=== PATIENT | female | born 1955 | race Caucasian/White ===

== ENCOUNTER 2023-10-25 09:58 | Outpatient (OUT) | payer MEDICARE, SELFPAY ==
--- NOTE | 2023-10-25 10:06 | US_ITS ---
[address] [address] Patient Name: DANYEL PHAM MRN: [facility]:[id number] date: 1955 Sex: F Assigned Patient Location: Current Patient Location: US Accession/Order Number: [id number] Exam Date: 10/25/2023 10:07 Report Date: 10/25/2023 11:48 At the request of: TROY ORTIZ Procedure: US carotid duplex BI EXAMINATION: US carotid duplex BI HISTORY: Bilateral Carotid Bruit R09.89 COMPARISON: No relevant comparison available. TECHNIQUE: Duplex Doppler ultrasound analysis of carotid and vertebral arteries. . Bilateral carotid arterial duplex examination was performed using B-mode, color flow and spectral analysis. Carotid stenosis is reported according to validated velocity parameters, similar to NASCET criteria. FINDINGS: RIGHT CAROTID ARTERY minimal plaque Subclavian: 106.24 cm/s / 0 cm/s CCA: Prox: 64.85 cm/s / 17.54 cm/s Mid: 71.30 cm/s / 14.17 cm/s Distal: 55.92 cm/s / 16.37 cm/s BULB: 46.03 cm/s / 17.47 cm/s ICA: Prox: 50.43 cm/s / 24.06 cm/s Mid: 77.89 cm/s / 29.55 cm/s Distal: 94.35 cm/s / 30.93 cm/s ECA: 49.05 cm/s / 6.34 cm/s VERTEBRAL: 47.74 cm/s / 14.10 cm/s, antegrade ICA/CCA ratio: 1.7 LEFT CAROTID ARTERY no plaque Subclavian: 118 cm/s / 10.1 cm/s CCA: Prox: 89.82 cm/s / 23.59 cm/s Mid: 68.82 cm/s / 17.12 cm/s Distal: 61.08 cm/s / 18.24 cm/s BULB: 62.18 cm/s / 23.73 cm/s ICA: Prox: 90.75 cm/s / 36.91 cm/s Mid: 94.04 cm/s / 35.82 cm/s Distal: 56.69 cm/s / 23.73 cm/s ECA: 43.49 cm/s / 7.25 cm/s VERTEBRAL: 46.79 cm/s / 19.33 cm/s, antegrade ICA/CCA ratio: 1.5 US/US carotid duplex BI IMPRESSION: 0-49% flow stenosis bilateral internal carotid arteries Spectral Doppler US Thresholds (Reference: Delfino EG, et al. Radiology 2000; 214:247-252) Stenosis (%) PSV (cm/sec) VICA/VCCA 0-49 <150 <2.5 50-69 150-225 2.5-4.0 >70 >225 >4.0 Electronically authenticated by: DERIC IBARRA Date: 10/25/2023 11:48
--- NOTE | 2023-10-25 10:07 | US_ITS ---
[address] [address] Patient Name: DANYEL PHAM MRN: [id number] date: 1955 Sex: F Assigned Patient Location: US Current Patient Location: US Accession/Order Number: [id number] Exam Date: 10/25/2023 10:07 Report Date: 10/25/2023 11:15 At the request of: TROY ORTIZ Procedure: US abdominal aortic aneurysm EXAMINATION: US abdominal aortic aneurysm HISTORY: Screening For Abdominal Aortic Aneurysm COMPARISON: No relevant comparison available. TECHNIQUE: Ultrasound examination of the retroperitoneal area was performed, with a focused evaluation of the abdominal aorta. FINDINGS: Proximal aorta: 1.8 x 2.0 cm Mid aorta: 1.2 x 1.4 cm Distal aorta: 1.2 x 1.7 cm Right common iliac artery: 1.0 x 1.2 cm Left common iliac artery: 1.0 x 1.0 cm Mild bilateral atherosclerotic disease US/US abdominal aortic aneurysm IMPRESSION: No aortic aneurysm Electronically authenticated by: DERIC IBARRA Date: 10/25/2023 11:15
== END 2023-10-25 09:59 | disposition home or self-care (01) ==
LOC: US 09:58
PROVIDERS: Family Provider Family Medicine; PCP Family Medicine; Visit Provider Student in an Organized Health Care Education/Training Program
DX: R09.89 Other specified symptoms and signs involving the circulatory and respiratory systems (principal); Z13.6 Encounter for screening for cardiovascular disorders; Z87.891 Personal history of nicotine dependence
CPT/HCPCS: 76775; 93880

== ENCOUNTER 2024-03-02 12:49 | Outpatient (OUT) | payer MEDICARE, SELFPAY ==
--- OUTSIDE RECORDS SUMMARY | 2024-03-02 12:54 | XMS_ITS | CCD ---
Author Organization [facility] Care Team Providers Care Embedder Name Role Phone Celena HARDY, Nina Primary Care Provider Angeli BACKEND JAVA DEVELOPER, Lisbet Unavailable Angeli BACKEND JAVA DEVELOPER, Lisbet Unavailable Nina Wright MD Primary Care Provider [phone] NINA WRIGHT Referring Unavailable NINA WRIGHT Primary Care Unavailable FRANCISCO SEYMOUR Attending Unavailable NINA WRIGHT Referring Unavailable NINA WRIGHT Primary Care Unavailable Anglei BACKEND JAVA DEVELOPER, Lisbet Unavailable NISHI BASSETT Attending Unavailable CHIDIPBASILIO, LISBET Attending Unavailable CHIDIPFER, LISBET Attending Unavailable ANGELI, LISBET Attending Unavailable NISHI BASSETT Referring Unavailable LISBET SUH Attending Unavailable ANGELI, LISBET Attending Unavailable LISBET SUH Referring Unavailable ELIZABETH LOMELI Attending Unavailab ELIZABETH Slade Referring Unavailab LISBET Decker Attending Unavailable CHIDIPFER, LISBET Referring Unavailable CHIDIPBASILIO, LISBET Attending Unavailable CHIDIPBASILIO, LISBET Attending Unavailable KAY PAREDES Attending Unavailable NISHI BASSETT Referring Unavailable Allergies Allergy Classification Reported Allergen(s) Allergy Type Date of Onset Reaction(s) Facility (11 sources) atorvastatin Drug Allergy 4 GI intolerance [facility] Medications Current Medications Medication Drug Class(es) Dates Sig (Normalized) Sig (Original) aspirin 81 mg delayed release oral tablet (18 sources) Platelet Aggregation Inhibitor, Nonsteroidal Anti-inflammatory Drug take 1 tablet by mouth in the morning aspirin 81 MG EC tablet Take 81 mg by mouth in the morning. Active bisacodyl 5 mg delayed release oral tablet (2 sources) Stimulant Laxative Start: 02-14-2024 End: 02-14-2024 take 1 tablet by mouth once bisacodyl (Dulcolax) 5 MG EC tablet Indications: History of colonoscopy with polypectomy Take 1 tablet (5 mg) by mouth 1 time for 1 dose Do not crush, chew, or split. Take as detailed on clinic hand out for colonoscopy prep 4 tablet 02/14/2024 02/14/2024 Active calcium carbonate 1500 mg oral tablet (15 sources) take 1 tablet by mouth in the morning calcium carbonate (Calcium 600) 600 MG tablet Take 600 mg by mouth in the morning. Active cetirizine hydrochloride 10 mg oral tablet (11 sources) Histamine-1 Receptor Antagonist cetirizine (ZyrTEC) 10 MG tablet Take by mouth Active cholecalciferol 0.025 mg oral capsule (17 sources) Vitamin D take 2 capsules by mouth in the morning cholecalciferol (Vitamin D-3) 25 MCG (1000 UT) capsule Take 2 capsules by mouth in the morning. Active take 2 capsules by m outh in the morning cholecalciferol, vitamin D3, 25 mcg (1,0 00 unit) capsule Take 2 capsules (2,000 Units total) by mouth in the morning. 0 Active docusate sodium 100 mg oral capsule (5 sources) Start: 02-03-2024 take 1 capsule by mouth once daily docusate sodium (Colace) 100 MG capsule Indications: Slow transit constipation Take 1 capsule (100 mg) by mouth Daily 30 capsule 02/03/2024 Active ergocalciferol, vitamin D2, (VITAMIN D2 ORAL) (3 sources) ergocalciferol, vitamin D2, (VITAMIN D2 ORAL) Take by mouth. 0 Active fluticasone propionate 0.05 mg/actuat metered dose nasal spray (11 sources) Corticosteroid Start: 01-11-2024 take 1 spray(s) nasal route once daily fluticasone (Flonase Allergy Relief) 50 MCG/ACT nasal spray Indications: Seasonal allergic rhinitis, unspecified trigger Administer 1 spray into each nostril Daily Shake gently. Before first use, prime pump. After use, clean tip and replace cap. 48 g 01/11/2024 Active 3 ml liraglutide 6 mg/ml pen injector (2 sources) GLP-1 Receptor Agonist inject 0.6 mg by subcutaneous injection in the morning SAXENDA 3 mg/0.5 mL (18 mg/3 mL) pen injector Inject 0.6 mg under the skin in the morning. 0 Active magnesium citrate (3 sources) MAGNESIUM CITRATE ORAL Take by mouth. 0 Active meclizine hydrochloride 12.5 mg oral tablet (5 sources) Antiemetic Start: 01-24-2024 End: 02-03-2024 take 1 tablet by mouth three times daily as needed for dizziness meclizine (Antivert) 12.5 MG tablet Indications: Vertigo Take 1 tablet (12.5 mg) by mouth 3 (three) times a day as needed for dizziness for up to 5 days 15 tablet 01/24/2024 02/03/2024 Discontinued (Therapy completed) montelukast 10 mg oral tablet (18 sources) Leukotriene Receptor Antagonist Start: 11-11-2023 End: 05-29-2024 take 1 tablet by mouth once daily montelukast (Singulair) 10 MG tablet Indications: Seasonal allergic rhinitis, unspecified trigger Take 1 tablet (10 mg) by mouth Daily 100 tablet 1 11/11/2023 05/29/2024 Active Start: 01-12-2021 End: 2023 take 1 tablet by mouth in the morning montelukast (SINGULAIR) 10 mg tablet Take 1 tablet (10 mg total) by mouth in the morning. 0 01/12/2021 Active Multiple Vitamin (multivitamin) tablet (15 sources) take 1 tablet by babie th in the morning Multiple Vitamin (multivitamin) tablet Take 1 tablet by mouth in the morning. Active take 1 tablet by mouth in the mo rning Multiple Vitamin (multivitamin) tablet Take 1 tablet by mouth in the morning. 0 Active mv-min/vit C/elderber/herb 124 (AIRBORNE ELDERBERRY ORAL) (3 sources) mv-min/vit C/elderber/herb 124 (AIRBORNE ELDERBERRY ORAL) Take by mouth. 0 Active polyethylene glycol 3350 24033 mg powder for oral solution (2 sources) Osmotic Laxative Start: 02-14-20 End: 02-14-20 take 17 g by mouth once polyethylene glycol, PEG, 3350 (Glycolax) 17 GM/SCOOP powder Indications: Colonoscopy Take 238 g by mouth 1 (one) time for 1 dose Take as detailed from clinic hand out for colonoscopy prep 238 g 02/14/2024 02/14/2024 Active saccharomyces boulardii 250 mg oral capsule (5 sources) take 1 capsule by mouth in the morning saccharomyces boulardii (Florastor) 250 MG capsule Take 250 mg by mouth in the morning and 250 mg before bedtime. Active Tirzepatide-Weight Management (Zepbound) 2.5 MG/0.5ML solution auto-injector (5 sources) Start: 05-10-19 End: 06-09-19 Tirzepatide-Weight Management (Zepbound) 2.5 MG/0.5ML solution auto-injector Indications: Class 1 obesity due to excess calories with serious comorbidity and body mass index (BMI) of 30.0 to 30.9 in adult Inject 2.5 mg under the skin 1 (one) time per week 2 mL 0 05/10/2023 06/09/2023 Active Start: 04-21-2023 End: 05-10-2023 Tirzepatide-Weight Managemen t (Zepbound) 2.5 MG/0.5ML solution auto-injector Indications: Class 1 obesity due to excess calories with serious comorbidity and body mass index (BMI) of 30.0 to 30.9 in adult Inject 2.5 mg under the skin 1 (one) time per week 2 mL 0 04/21/2023 05/10/2023 Discontinued (Reorder) UNABLE TO FIND (3 sources) UNABLE TO FIND Z ebound injection for weight loss one time weekly 0 Active UNABLE TO FIND T kellie by mouth daily. Med Name: Biotin, Gas Relief, and Zinc OTC 0 Active zinc gluconate 50 mg oral capsule (15 sources) take 1 capsule by mo ut in the morning Zinc Gluconate 50 MG capsule Take 1 capsule by mouth in the morning. Active Completed/Discontinued Medications Medication Drug Class(es) Dates Sig (Normalized) Sig (Original) Semaglutide-Weight Management (Wegovy) 0.25 MG/0.5ML solution auto-injector (3 sources) Start: 12-24-2023 End: 01-24-2024 Semaglutide-Weight Management (Wegovy) 0.25 MG/0.5ML solution auto-injector Indications: Class 1 obesity due to excess calories without serious comorbidity with body mass index (BMI) of 32.0 to 32.9 in adult Inject 0.25 mg under the skin 1 (one) time per week 6 mL 12/24/2023 01/24/2024 Discontinued Start: 12-24-2023 Semaglutide-We ight Management (Wegovy) 0.25 MG/0.5ML solution auto-injector Indications: Class 1 obesity due to excess calories without serious comorbidity with body mass index (BMI) of 32.0 to 32.9 in adult Inject 0.25 mg under the skin 1 (one) time per week 6 mL 12/24/2023 Active 100 ml zoledronic acid 0.05 mg/ml injection (1 source) Bisphosphonate Start: 05-31-2023 End: 05-31-2023 zoledronic acid (RECLAST) IVPB 5 mg/100 mL in mannitol 5% and water (0.05 mg/mL premix) Problems Active Problems Problem Classification Problem Date Documented Da te Episodic/Chronic Acquired foot deformities (15 sources) Hallux valgus; Translations: [Hallux valgus (acquired), unspecified foot] Onset: 07-26-2018 12-07-2022 Chronic Adjustment disorders (20 sources) Stress and adjustment reaction; Translations: [Adjustment disorder with other symptoms] Onset: 02-05-2020 08-19-2022 Chronic Anxiety disorders (15 sources) Anxiety; Translations: [Other specified anxiety disorders] Onset: 08-19-2022 08-19-2022 Chronic Conditions associated with dizziness or vertigo (2 sources) Vertigo; Translations: [Dizziness and giddiness] 01-24-2024 Episodic Disorders of lipid metabolism (15 sources) Mixed hyperlipidemia; Translations: [Mixed hyperlipidemia] Onset: 08-18-2022 08-18-2022 Chronic Mood disorders (15 sources) Dysthymia; Translations: [Dysthymic disorder] Onset: 08-18-2022 08-18-2022 Chronic Nutritional deficiencies (15 sources) Vitamin D deficiency; Translations: [Vitamin D deficiency, unspecified] Onset: 10-09-2019 12-07-2022 Chronic Occlusion or stenosis of precerebral arteries (6 sources) Bilateral stenosis of carotid arteries; Translations: [Occlusion and stenosis of bilateral carotid arteries] Onset: 11-04-2023 02-03-2024 Chronic Osteoporosis (20 sources) Senile osteoporosis; Translations: [Age-related osteoporosis without current pathological fracture] Onset: 10-02-2019 05-13-2023 Chronic Other and unspecified benign neoplasm (4 sources) History of polyp of colon; Translations: [History of colon polyps] 02-03-2024 Episodic Other circulatory disease (1 source) Other specified symptoms and signs involving the circulatory and respiratory systems; Translations: [Other specified symptoms and signs involving the circulatory and respiratory systems] Onset: 10-07-2023 Episodic Other gastrointestinal disorders (2 sources) Slow transit constipation; Translations: [Slow transit constipation] 02-03-2024 Episodic Other lower respiratory disease (4 sources) Calcified granuloma of lung; Translations: [Pulmonary fibrosis, unspecified] Onset: 08-19-2022 08-19-2022 Chronic Other nervous system disorders (15 sources) Chronic pain; Translations: [Other chronic pain] Onset: 05-16-2019 12-07-2022 Chronic Other nutritional; endocrine; and metabolic disorders (17 sources) Obesity; Translations: [Obesity, unspecified] Onset: 08-19-2022 08-19-2022 Chronic Other nutritional; endocrine; and metabolic disorders (1 source) Obesity caused by energy imbalance; Translations: [Other obesity due to excess calories] 05-10-2023 Chronic Other upper respiratory disease (15 sources) Seasonal allergic rhinitis; Translations: [Other seasonal allergic rhinitis] Onset: 08-18-2022 08-18-2022 Chronic Other upper respiratory disease (2 sources) Nasal congestion; Translations: [Nasal congestion] 01-24-2024 Episodic Otitis media and related conditions (2 sources) Otitis media of left ear; Translations: [Unspecified nonsuppurative otitis media, left ear] 01-24-2024 Episodic Residual codes; unclassified (15 sources) Obstructive sleep apnea syndrome; Translations: [Obstructive sleep apnea (adult) (pediatric)] Onset: 08-18-2022 08-18-2022 Chronic Residual codes; unclassified (2 sources) History of colonoscopy; Translations: [Other specified postprocedural states] 02-14-2024 Episodic Screening and history of mental health and substance abuse codes (1 source) Personal history of nicotine dependence; Translations: [Personal history of nicotine dependence] Onset: 10-07-2023 Episodic Unclassified (1 source) Outpatient Infusion Onset: 05-31-2023 Unclassified (1 source) Varicose Veins Onset: 10-07-2023 Past or Other Problems Problem Classification Problem Date Documented Da te Episodic/Chronic Mood disorders (15 sources) Mood disorders Onset: 03-12-2023 03-12-2023 Other and unspecified benign neoplasm (18 sources) Adenomatous polyp of colon ; Translations: [Benign neoplasm of sigmoid colon] Onset: 03-27-2021 12-07-2022 Episodic Other circulatory disease (11 sources) Carotid bruit; Translations: [Other specified symptoms and signs involving the circulatory and respiratory systems] Onset: 10-07-2023 10-22-2023 Episodic Other fractures (15 sources) Compression fracture of thoracic vertebra, nontraumatic; Translations: [Collapsed vertebra, not elsewhere classified, thoracic region, initial encounter for fracture] Onset: 08-19-2022 08-19-2022 Episodic Other lower respiratory disease (11 sources) Calcified granuloma of lung; Translations: [Other disorders of lung] Onset: 08-19-2022 08-19-2022 Episodic Other screening for suspected conditions (not mental disorders or infectious disease) (20 sources) Mammography abnormal; Translations: [Other abnormal and inconclusive findings on diagnostic imaging of breast] Onset: 04-30-2017 12-07-2022 Episodic Residual codes; unclassified (15 sources) Insomnia; Translations: [Insomnia, unspecified] Onset: 12-07-2022 12-07-2022 Episodic Unclassified (3 sources) Onset: 03-27-2021 03-27-2021 Unclassified (2 sources) Patient encounter status 02-03-2024 Varicose veins of lower extremity (12 sources) Asymptomatic varicose veins of bilateral lower extremities; Translations: [Varicose veins of lower extremity] Onset: 10-07-2023 10-22-2023 Episodic Results Test Name Value Interpretation Reference Range Facility Laboratory - Microbiology an d Antimicrobial susceptibilityon 01-24-2024 SARS-CoV-2 (COVID-19) RNA MARIELLE+probe Ql (Unsp spec) - [facility] No Panel Informationon 01-23 FLU A - [facility] Healthcare FLU B - [facility] Interpretation and review of laboratory results Normal [facility] BI MAMMOGRAM SCREENING TOMOS YNTHESIS BILATERALon 01-11-2024 BI MAMMOGRAM SCREENING TOMOSYNTHESIS BILATERAL This is a summary report. The complete report is available in the patient's medical record. If you cannot access the medical record, please contact the sending organization for a detailed fax or copy. Examination: BI MAMMOGRAM SCREENING TOMOSYNTHESIS BILATERAL Clinical History: screening Technique: Screening digital mammography study of both breasts was performed with 2-D and 3-D tomosynthesis imaging. Study was compared to the prior exam dated 11/04/2022. Findings: There is no evidence of interval dominant spiculated mass, grouped microcalcifications, or skin thickening which would be suggestive of malignancy. A few benign-appearing calcifications are seen bilaterally. Axillary lymph nodes are noted bilaterally. IMPRESSION: Impression: No specific evidence of malignancy seen in either breast. Breast Density: There are scattered areas of fibroglandular density BiRads: BIRADS 2 - Benign Recommended follow-up: Routine Screening Mamm ELECTRONICALLY SIGNED BY: Charan Abreu M.D. Normal Not Available XR HIP 2 OR 3 VW LEFTon 10-10 XR HIP 2 OR 3 VW LEFT FINDINGS: Mild bilateral axial joint space reduction is seen. Bilateral coxa profunda. No pincer deformities. Bilateral moderate sized CAM deformities, left greater than right. No cortical or stress fracture is identified. Pelvic ring and sacral struts are intact. Soft tissues are relatively unremarkable. IMPRESSION: Moderate osteoarthritis, left greater than right TRANSCRIBED BY: ELECTRONICALLY SIGNED BY: Elijah Chin MD Normal Not Available DEXA BONE DENSITYon 09-23-19 DEXA BONE DENSITY Correlation is made with the prior DEXA examination August 18, 2021. FINDINGS: Dual Femur bone density obtained with a Bkam whole body system: Region BMD Young-Adult Age-Matched Total (g/cm2) (%) T-Score (%) Z-Score Mean 0.760 90 -0.8 115 +0.9 IMPRESSION: Impression: The mean BMD and corresponding T-score indicated above indicate Normal Bone Mass (borderline osteopenia) and places the patient at no significant risk for fracture. This information can serve as a baseline with which to compare future studies. Compared to the prior exam, +0.8% change is seen. FINDINGS: Right Forearm bone density obtained with a [employer] whole body system: Region BMD Young-Adult Age-Matched Total (g/cm2) (%) T-Score (%) Z-Score Mean 0.553 81 -2.3 97 -0.3 Impression: The mean BMD and corresponding T-score indicated above indicate Low Bone Mass (Osteopenia), borderline osteoporosis and places the patient at a mild to moderate increased risk for fracture. There may be a future risk of developing osteoporosis. Compared to the prior exam, -0.6% change is seen. Comment: The T-score is the primary focus of the interpretation of a patient?s bone mineral density measurement. The T-score is the number of standard deviations an individual is above or below the mean value for a young female having normal bone mass. The WHO defines osteoporosis based on the T-score value? +1.0 to ?0.9: Normal bone mass -1.0 to -2.5: Osteopenia and thus may be at future risk of fracture -2.6 to ?5: Osteoporosis and ?at significantly increased risk of fracture? TRANSCRIBED BY: ELECTRONICALLY SIGNED BY: Elijah Chin MD Normal Not Available Comment on above: Order Comment: Babatunde ballesteros call the patient to schedule after 08/19/23 to be done at [facility] in [place], thank you Multiple labson 05-17-2023 [facility] XR FOOT 3+ VIEWS RIGHTon XR FOOT 3+ VIEWS RIGHT EXAM: XR FOOT 3+ VIEWS RIGHT [facility]-[id number] CLINICAL INDICATION: pain TECHNIQUE: AP, lateral, and oblique views of the foot. COMPARISON: None. FINDINGS: No acute fracture, dislocation or subluxation. There is mild degenerative change of the first MTP joint. There is a very small plantar calcaneal enthesophyte. The soft tissues are unremarkable. IMPRESSION: 1. Mild degenerative change of the first MTP joint. 2. Very small plantar heel spur. 3. No acute osseous abnormality. ELECTRONICALLY SIGNED BY: Jose Alford MD Normal Not Available XR Hip Complete Right*on XR Hip Complete Right* HISTORY: Fall with right hip/buttock pain. COMPARISON: None RESULT: Subtle linear lucencies involving the right-sided pubic bones, suspicious for nondisplaced fracture. Pubic symphysis alignment maintained. Otherwise no evidence for acute fracture involving the bony pelvis elsewhere, or the hips. Degenerative changes and changes from vertebral body augmentation involving the lower lumbar spine. SI joints intact. Mild to moderate degenerative changes both hips. Pelvic phleboliths. No other significant abnormality. IMPRESSION: Findings suspicious for nondisplaced right-sided pubic bone fractures. Report reported and signed by Zack Jacobs on 05/07/2022 1201 Normal [facility] SCREENING MAMMOGRAM W/KASIA, BILATERAL*on 08-18-2021 SCREENING MAMMOGRAM W/KASIA, BILATERAL* COMPARISON: August 07, 2020, July 21, 2018 TECHNIQUE: 2D and 3D Tomosynthesis of the right and left breasts was performed. FINDINGS: Breast composition demonstrates scattered fibroglandular densities. Overall appearance is stable. No suspicious microcalcifications, asymmetry, architectural distortion, or associated features are present. IMPRESSION: BIRADS 1: Negative mammogram Board Certified Radiologist. Accredited by the ACR and FDA. MAMMOGRAPHY IS VERY IMPORTANT TO YOUR HEALTH. THE CURRENT [employer] AND [employer] GUIDELINES RECOMMENDS ANNUAL MAMMOGRAPHY BEGINNING AT AGE 40 THIS FACILITY USES A REMINDER SYSTEM TO ENSURE ALL PATIENTS RECEIVE REMINDER NOTIFICATIONS AT THE APPROPRIATE TIME BASED ON THE RECOMMENDATIONS OF THIS EXAM. Report reported and signed by Elijah Chin on 08/19/2021 0710 Normal [facility] XR Bone Density (DEXA)on XR Bone Density (DEXA) EXAM: Dual Femur Bone Density FINDINGS: Dual Femur bone density obtained with a Bk[employer] whole body system: PixonicAdultA ge-Matched Total(g/cm2)(%)T-Scor e(%)Z-Score Mean0.05764-6.62623.9 Impression: The mean BMD and corresponding T-score indicated above indicate Normal Bone Mass and places the patient at no significant risk for fracture. This information can serve as a baseline with which to compare future studies. Findings are borderline osteopenia. Compared to the prior DEXA examination of August 16, 2019, change of -0.1% is noted. EXAM: Right Forearm Bone Density FINDINGS: Right Forearm bone density obtained with a Bkam whole body system: RegionBMDYSUB ONE TECHNOLOGYg-AdultA ge-Matched Total(g/cm2)(%)T-Scor e(%)Z-Score Mean0.86067-9.296-0.4 Impression: The mean BMD and corresponding T-score indicated above indicate Low Bone Mass (Osteopenia) and places the patient at a mild to moderate increased risk for fracture. There may be a future risk of developing osteoporosis. Compared to the prior DEXA examination of August 16, 2019, change of +4.4% Comment: The T-score is the primary focus of the interpretation of a patient???s bone mineral density measurement. The T-score is the number of standard deviations an individual is above or below the mean value for a young female having normal bone mass. The WHO defines osteoporosis based on the T-score value??? +1.0 to ???0.9: Normal bone mass -1.0 to -2.5: Osteopenia and thus may be at future risk of fracture -2.6 to ???5: Osteoporosis and ???at significantly increased risk of fracture??? A Z-Score of -2.0 or lower is defined as ???below the expected range for age??? and a Z-Score above -2.0 is ???within the expected range for age.??? Osteoporosis cannot be diagnosed in men under the age of 50 on the basis of BMD alone. Per 2019 ISCD guidelines, Z-Scores (not T-Scores) are preferred when reporting data in premenopausal females and males less than 50 years of age. Report reported and signed by Elijah Chin on 08/19/2021 0725 Normal [facility] Multiple labsOrdered By: Noelle Cary on 05-22-2021 [facility] Calciumon 05-13-2021 Calcium [Mass/Vol] 9.7 mg/dL Normal 8.6-10.2 [facility] Comment on above: Performed By: #### C STORM CA #### [facility] [address], [place] [id number] Creatinineon 05-13-2021 Creatinine [Mass/Vol] 0.8 mg/dL Normal 0.6-1.4 [facility] Comment on above: Performed By: #### C STORM CA #### [facility] [address] [place] [id number] eGFRAA 93 mL/min/1.73m2 Normal >60 [facility] Comment on above: Performed By: #### C JOHN INMAN #### [facility] [address], [place] [id number] eGFRNAA 76 mL/min/1.73m2 Normal >60 [facility] Specialist Comment on above: Performed By: #### C JOHN INMAN #### [facility] [address], [place] [id number] Multiple labson 05-13-2021 [facility] - AP Resultson 0 Lab - AP Results [id number] Normal [facility]R Intraoperative Recordon 05-26-2019 [facility] Intraoperative Record [facility] Intra-Op Record Summary Primary Physician: Dylan Faith DO Finalized Date/Time: 05/26/19 14:29:02 Pt. Name: DANYEL PHAMO.B./Sex: 1955 FEMALE Med Rec #: [id number] Physician: Dylan Faith DO Financial #: [id number] Pt. Type: D Room/Bed: / Admit/Disch: 05/22/19 10:16:00 - 05/22/19 15:40:00 Institution: Case Times MAGR Entry 1 Patient In Room Time 05/22/19 13:35:00 Out Room Time 05/22/19 14:28:00 Anesthesia Start Time 05/22/19 13:35:00 Stop Time 05/22/19 14:28:00 Surgery Start Time 05/22/19 13:59:00 Stop Time 05/22/19 14:22:00 Last Modified By: Abida Padilla RN 05/22/19 14:53:11 Case Attendance MAGR Entry 1 Entry 2 Entry 3 Case Attendee Dylan Faith William MD Jasenak RN, Abida Guajardo DO Role Performed Surgeon - Primary Anesthesiologist of Manager Social Services Record Time In 05/22/19 13:35:00 05/22/19 13:35:00 05/22/19 13:35:00 Time Out 05/22/19 14:28:00 05/22/19 14:28:00 05/22/19 14:28:00 Procedure Kyphoplasty(L3) Kyphoplasty(L3) Kyphoplasty(L3) Last Modified By: Randy KIM, Abida Padilla RN, Abida Quinn RN 05/22/19 14:53:17 05/22/19 14:53:17 05/22/19 14:53:17 Entry 4 Entry 5 Entry 6 Case Attendee Genny Torres Liberty G Smith, Melanie Role Performed Community Health Promoter Scrub Personnel Food Concession Manager Time In 05/22/19 13:35:00 05/22/19 13:35:00 05/22/19 13:35:00 Time Out 05/22/19 14:28:00 05/22/19 14:28:00 05/22/19 14:28:00 Procedure Kyphoplasty(L3) Kyphoplasty(L3) Kyphoplasty(L3) Last Modified By: Randy KIM, Abida Padilla RN, Abida Quinn RN 05/22/19 14:53:17 05/22/19 14:53:17 05/22/19 14:53:17 Entry 7 Case Attendee Dylan Diamond Role Performed Food Concession Manager Time In 05/22/19 13:35:00 Time Out 05/22/19 14:28:00 Procedure Kyphoplasty(L3) Last Modified By: Abida Padilla RN 05/22/19 14:53:17 General Comments: JANICE BLANTON-[employer] REP Surgical Procedures MAGR Pre-Care Text: A.20 Verifies operative procedure, surgical site, and laterality Im.150 Develops individualized plan of care Entry 1 Procedure Kyphoplasty Primary Procedure Yes Primary Surgeon Dylan Faith Modifiers L3 Bennett DO Surgeon Comment KYPHOPLASTY L3 Start 05/22/19 13:59:00 Stop 05/22/19 14:22:00 Anesthesia Type MAC Surgical Service Orthopedics Wound Class Clean Technique Details Closure Technique Primary Entire procedure No was performed via laparoscope or robotic assistance Last Modified By: Abida Padilla RN 05/22/19 14:53:35 Post-Care Text: O.730 The patient's care is consistent with the individualized perioperative plan of care General Case Data MAGR Pre-Care Text: A.350.1 Classifies surgical wound Entry 1 Case Information OR MAGR OR 02 Case Level Level 3 Wound Class Clean Specialty Orthopedics ASA Class 2 Diagnosis Preop Diagnosis COMPRESSION FRACTURE L3 Postop Same As Preop Yes Postop Diagnosis COMPRESSION FRACTURE L3 Blunt or No Is the procedure No penetrating injury considered occured prior to Emergent/Urgent? the start of the procedure: Last Modified By: Abida Padilla RN 05/22/19 14:05:47 Post-Care Text: O.760 Patient receives consistent and comparable care regardless of the setting Time Out MAGR Entry 1 Time out date/time 05/22/19 13:57:00 All team members Yes have introduced themselves by name and role Surgeon, Yes Surgeon reviews Yes anesthesia, nurse critical or confirm patient, unexpected steps, site, procedure operative duration, anticipated blood loss Anesthesia team Yes Nursing team Yes reviews any reviews sterility patient-specific (including concerns indicator results) and equipment issues/concerns Antibiotic Antibiotic Yes prophylaxis given within the last 60 minutes Is essential Yes imaging displayed? Last Modified By: Abida Padilla RN 05/22/19 14:06:11 Patient Positioning MAGR Pre-Care Text: A.280 Identifies baseline musculoskeletal status Im.40 Positions the patient Im.80 Applies safety devices Entry 1 Procedure Kyphoplasty(L3) Body Position Prone Left Arm Position Elevated Right Arm Position Resting at Side Left Leg Position Extended Right Leg Position Elevated Feet Uncrossed? Yes Press Points Checked Yes Positioning Device Pillow, Safety Strap Outcome Met (O.80) Yes Last Modified By: Abida Padilla RN 05/22/19 14:06:37 Post-Care Text: E.290 Evaluates musculoskeletal status O.80 Patient is free from signs and symptoms of injury related to positioning Skin Prep MAGR Pre-Care Text: A.30 Verifies allergies Im.270 Performs skin preparation Im.270.1 Implements protective measures to prevent skin and tissue injury due to chemical sources Entry 1 Skin Prep Syntegrity Prep Agents (Im.270) Chlorhexidine Gluconate Prep By Abida Padilla RN and Alcohol Prep Area (Im.270) Back Skin Prep Agent Dry Yes Without Pooling Hair Removal Syntegrity Hair Removal Methods No hair removal performed Outcome Met (O.100) Yes Last Modified By: Abida Padilla RN 05/22/19 14:07:30 Post-Care Text: E.10 Evaluates for signs and symptoms of physical injury to skin and tissue O.100 Patient is free from signs and symptoms of chemical injury Cultures and Specimens MAGR Pre-Care Text: A.350 Assesses susceptibility for infection A.10 Confirms patient identity Im.320 Manages culture specimen collection Im.330 Manages specimen handling and disposition Entry 1 Cultures Ordered No Specimens Ordered Yes Outcome Met (O.40) Yes Last Modified By: Abida Padilla RN 05/22/19 14:54:12 Post-Care Text: E.40 Evaluates correct processes have been performed for specimen handling and disposition O.40 Patient's specimen(s) is managed in the appropriate manner X-Rays and Images MAGR Pre-Care Text: A.240 Assesses baseline skin condition A.240.1 Assesses history of previous radiation exposure Im.110 Implements protective measures to prevent injury due to radiation sources Entry 1 Site Back lower X-Ray Type C-Arm Protective Devices Yes Outcome Met (O.110) Yes Used Last Modified By: Abida Padilla RN 05/22/19 14:07:49 Post-Care Text: E.10 Evaluates for signs and symptoms of physical injury to skin and tissue O.110 Patient is free from signs and symptoms of radiation injury Implant Log MAGR Pre-Care Text: A.20 Verifies operative procedure, surgical site, and laterality Im.350 Records implants inserted during the operative or invasive procedure Entry 1 Procedure Kyphoplasty(L3) Implant Action Implant Description [employer] HIGH VISCOSITY RADIOPAQUE BONE CEMENT Implant Information Implant/Explant 05/22/19 14:10:00 Implanted/Explanted Dylan Faith Date/Time 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 Dressing Item Details Dressing Item ABD Tape (Im.290) Foam (Im.290) Outcome Met Yes Last Modified By: Abida Padilla RN 05/22/19 14:56:50 Post-Care Text: E.200 Evaluates progress of wound healing O.200 Patient's wound perfusion is consistent with or improved from baseline levels Departure from OR MAGR Entry 1 Present on Depart Oxygen Via Stretcher Post-op Destination PACU II Skin DFO Condition Dry Description Condition Warm Description Condition Intact Description Report Given To Sherri Parker RN Airway Maintenance Patient Status Stable Oxygen in Use? Yes Airway Device Simple mask Flow Rate 6 L/min Last Modified By: Abida Padilla RN 05/22/19 14:57:06 Case Comments Finalized By: Elly Mascorro RN Document Signatures Signed By: Abida Padilla RN 05/22/19 14:57 Elly Mascorro RN 05/26/19 14:29 Unfinalized History Date/Time Username Reason for Unfinalizing Freetext Reason for Unfinalizing 05/26/19 14:28 MHBLONG Modify Pick List Normal [facility] Pathology Sendout Teston Pathology Send Out. See Report Normal [facility] Comment on above: Order Comment: L3 VE RTEBRE BONE BIOPSY Performed By: #### 2 [id number] ####[facility] (DEFAULT)[address] [place] [address] Coding Summaryon 05-25-2019 Coding Summary CODING DATE: 05/25/2019 [facility] STATUS: Home PAYOR: Commercial Insurance APC DESCRIPTION 511 Level 4 Musculoskeletal Procedures ADMIT DX: REASON FOR VISIT DX: M80.08XA Age-related osteoporosis with current pathological fracture, vertebra(e), initial encounter for fracture FINAL DX: PRINCIPAL: M80.08XA Age-related osteoporosis with current pathological fracture, vertebra(e), initial encounter for fracture SECONDARY: PYMT PROC APC STAT DESCRIPTION DOCTOR NAME DATE 5113 J1 Percutaneous vertebral Dylan Faith And 05/22/2019 augmentation, including cavity creation (fracture reduction and bone biopsy included when performed) using mechanical device (eg, kyphoplasty), 1 vertebral body, unilateral or bilateral cannulation, inclusive of all imaging guidance NOTE: The code number assigned matches the documented diagnosis and / or procedure in the patient's chart. However, the narrative phrase printed from the coding software may appear abbreviated, or result in slightly different terminology. Coded By: Radha Nassar Date Saved: 05/25/2019 08:06 am [facility] History and Physicalon 05-24 History and Physical [id number] .00[facility] Provider Orderson 05-24-2019 Provider Orders [id number] .00[facility] Consent Formson 05-23-2019 Consent Forms [id number] [place] [address] Discharge Instructionson Discharge Instructions [id number] [place] [address] Medication Managementon 05-13 Medication Management [id number] .00[facility] Anesthesia Noteon 05-22-2019 Anesthesia Note Patient: DANYEL PHAM Age: 63 years Sex: FEMALE : 1955 Associated Diagnoses: None Author: Charles Veronica MD Postoperative Information Anesthetic utilized: Monitored anesthesia care. Assessment Anesthetic outcome No anesthetic complications noted. Plan Transfer/ Discharge: Patient can be discharged from PACU when criteria met. Condition good. [Electronically Signed on: 05/22/2019 14:38 EST] Charles Veronica MD [Verified on: 05/22/2019 14:38 EST] Charles Veronica MD [facility] Anesthesia Note Patient: DANYEL PHAM Age: 63 years Sex: FEMALE : 1955 Associated Diagnoses: None Author: Charles Veronica MD Preoperative Information Anesthesia history: Family history. Patient history: No prior anesthesia problems. Review of Systems Constitutional: Negative. Cardiovascular: No Chest Pain. No SOB. Health Status Allergies: Allergic Reactions (All) No known allergies Current medications: Home Medications (9) Active aspirin 81 mg oral delayed release tablet 81 mg = 1 tab(s), PO, Daily calcitonin 200 intl units/inh nasal spray 1 spray(s), Nasal, Daily Calcium 600+D 600 mg-200 intl units oral tablet 1 tab(s), PO, BID fluticasone propionate 2 spray(s), Nostrils-Both, Daily ibuprofen 800 mg oral tablet 800 mg = 1 tab(s), PO, TID naproxen 500 mg oral tablet 500 mg = 1 tab(s), PO, BID [place]-3 oral capsule 1 tab(s), PO, Daily ProAir HFA 90 mcg/inh inhalation aerosol 2 puff(s), PRN, INH, q4hr Singulair 10 mg oral tablet 10 mg = 1 tab(s), PO, qPM Problem list (past medical history): All Problems Back pain / SNOMED CT 049641646 / Confirmed Fracture / SNOMED CT 531731459 / Confirmed Seasonal allergies / SNOMED CT 1644596948 / Confirmed Histories Family History: No family history items have been selected or recorded. Procedure history: Cholecystectomy ([id number]) in 2007 at 52 Years. Comments: 05/17/2019 13:44 Abida Del Castillo RN Age 52 Hysterectomy ([id number]) in 2005 at 50 Years. Comments: 05/17/2019 13:43 Abida Del Castillo RN age 50 Appendectomy ([id number]) in 1987 at 32 Years. Sinus (8524989497) in 1968 at 13 Years. Comments: 05/17/2019 13:44 Abida Del Castillo RN Sinuses Surgery Colonoscopy (839928091). Social History Electronic Cigarette/Vaping Assessment Electronic Cigarette Use: Never. Alcohol Assessment Use: Never. Tobacco Assessment Never (less than 100 in lifetime) Tobacco Use:. Substance Abuse Assessment Substance use: Never. . Social & Psychosocial Habits Alcohol 05/17/2019 Alcohol Use: Never Substance Abuse 05/17/2019 Substance use: Never Tobacco 05/17/2019 Smoking tobacco use: Never (less than 100 in l Electronic Cigarette/Vaping 05/17/2019 Electronic Cigarette Use: Never . Physical Examination General: Alert and oriented. Airway: Mallampati classification: II (soft palate, fauces, uvula visible). Temporomandibular joint mobility: Good. Mouth: Dentures ( Upper dentures ). Respiratory: Lungs are clear to auscultation. Cardiovascular: Regular rhythm. Neurologic: Alert, Oriented. Review / Management Laboratory Results Plan [place] [employer]#( A) physical status classification: Class II. Anesthetic Preoperative Plan Anesthesia: Monitored anesthesia care. Anesthetic plan, risks, benefits, and alternatives discussed with the patient and/or family. Patient verbalized understanding. Informed consent was given. Anesthetic technique: Monitored anesthesia care. [Electronically Signed on: 05/22/2019 13:22 EST] Charles Veronica MD [Verified on: 05/22/2019 13:22 EST] Charles Veronica MD [facility] Inpatient Patient Summaryon 05-22-2019 [place]patient [place] [address] Patient Discharge Instructions Name: DANYEL PHAM Michael : 1955 Patient [address]: [address] [place] [address] Primary Care Provider: Name: NINA WRIGHT After you are discharged if you find you have any questions, please, call [phone] ext [phone] to speak to a nurse. Discharge Diagnosis: Osteoporotic compression fracture of spine Prescription Information: If you have been given a prescription for narcotics, seek immediate medical attention if you have any difficulty breathing or any sudden status changes such as confusion and sleepiness. If you or anyone you know is experiencing suicidal thoughts, mental health, alcohol and/or drug addiction problems; contact the [facility] Recovery [facility] 02/11 Crisis Hotline -Text 4HWBS tj 147510. If you received any narcotics, sedation, or any other medication that causes drowsiness for the next 24 hours, unless otherwise directed: ? Do not drive a car. ? Do not operate machinery such as power tools, lawn mowers, drills, sewing machines, or stoves ? Avoid alcoholic beverages and drugs for allergies, nerves, or sleep ? Do not make important personal or business decisions or sign any legal documents [facility] would like to thank you for allowing us to assist you with your healthcare needs. The following includes patient education materials and information regarding your injury/illness. DANYEL PHAM has been given the following list of follow-up instructions, prescriptions, and patient education materials: Follow-up Instructions With: Address: When: NIHSI BASSETT [address] [facility], [facility] [address] [place], [place] [id number] Business (1) In 9 days 05/31/2019 With: Address: When: NINA WRIGHT [address] [place] [id number] Business (1) Medications During the course of your visit, your medication list was updated with the most current information. The details of those changes are reflected below: Medications to Continue That Have Not Changed Other Medications acetaminophen-oxycodo ne (Percocet 5/325 oral tablet) 2 tab(s) Oral Every 6 hours as needed for pain. albuterol (ProAir HFA 90 mcg/inh inhalation aerosol) 2 puff(s) Inhalation Every 4 hours as needed for wheezing. aspirin (aspirin 81 mg oral delayed release tablet) 1 tab(s) Oral every day. calcitonin (calcitonin 200 intl units/inh nasal spray) 1 spray(s) Nasal every day. calcium-vitamin D (Calcium 600+D 600 mg-200 intl units oral tablet) 1 tab(s) Oral 2 times a day. fluticasone (fluticasone propionate) 2 spray(s) Both Nostrils every day. ibuprofen (ibuprofen 800 mg oral tablet) 1 tab(s) Oral 3 times a day. montelukast (Singulair 10 mg oral tablet) 1 tab(s) Oral once a day (in the evening). naproxen (naproxen 500 mg oral tablet) 1 tab(s) Oral 2 times a day. omega-3 polyunsaturated fatty acids ([place]-3 oral capsule) 1 tab(s) Oral every day. It is important to always keep an active list of medications available so that you can share with other providers and manage your medications appropriately. As an additional courtesy, we are also providing you with your final active medications list that you can keep with you. acetaminophen-oxycodo ne (Percocet 5/325 oral tablet) 2 tab(s) Oral Every 6 hours as needed for pain. albuterol (ProAir HFA 90 mcg/inh inhalation aerosol) 2 puff(s) Inhalation Every 4 hours as needed for wheezing. aspirin (aspirin 81 mg oral delayed release tablet) 1 tab(s) Oral every day. calcitonin (calcitonin 200 intl units/inh nasal spray) 1 spray(s) Nasal every day. calcium-vitamin D (Calcium 600+D 600 mg-200 intl units oral tablet) 1 tab(s) Oral 2 times a day. fluticasone (fluticasone propionate) 2 spray(s) Both Nostrils every day. ibuprofen (ibuprofen 800 mg oral tablet) 1 tab(s) Oral 3 times a day. montelukast (Singulair 10 mg oral tablet) 1 tab(s) Oral once a day (in the evening). naproxen (naproxen 500 mg oral tablet) 1 tab(s) Oral 2 times a day. omega-3 polyunsaturated fatty acids ([place]-3 oral capsule) 1 tab(s) Oral every day. Take only the medications listed above. Contact your doctor prior to taking any medications not on this list. Diet & Activity Patient Activity Level: Patient Diet: Regular Patient Activity Restrictions: Comment: Patient education materials, if any, will display below DR. MENDOZA POST OPERATIVE KYPHOPLASTY OR LUMBAR SPINE SURGERY INSTRUCTIONS SURGEONS WRITTEN INSTRUTCTIONS: -Avoid strenuous lifting or repetitive bending for 6 weeks after surgery -You may shower in 1 day. Remove the outer dressing before showering. If you have steri strips in place, DO NOT remove the steri-strips. DO NOT submerge the wound under water such as sitting in a bathtub, hot tub, or going swimming -Cover the wound with a 4x4 gauze or large Band-Aid until the dressing or Band-Aid are clean and dry for 2 days. You can then leave it open to air -If you have any questions or concerns, please call the office at [phone] -Follow up as scheduled Viruses or Bacteria What?s got you sick? Antibiotics only treat bacterial infections. Viral illnesses cannot be treated with antibiotics. When an antibiotic is not prescribed, ask your healthcare professional for tips on how to relieve symptoms and feel better. Usual Cause Illness Viruses Bacteria Antibiotic Needed Cold/Runny Nose NO Bronchitis/Chest Cold (in otherwise healthy children and adults) NO Whooping Cough Yes Flu NO Strep Throat Yes Sore Throat (except strep) NO Fluid in the middle ear (otitis media with effusion) NO Urinary Tract Infection Yes Antibiotics Aren?t Always the Answer www.cdc.gov/getsmart GET SMART Know When Antibiotics Work [place].S[place] Department of Health and Human Services Centers for Disease Control and Prevention [facility] Postoperative Record [facility] Phase II Record Summary Primary Physician: Dylan Faith DO Finalized Date/Time: 05/22/19 15:46:38 Pt. Name: VERODANYEL./Sex: 1955 FEMALE Med Rec #: [id number] Physician: Dylan Faith DO Financial #: [id number] Pt. Type: D Room/Bed: / Admit/Disch: 05/22/19 10:16:00 - Institution: Phase II Case Times MAGR Pre-Care Text: Patient is free from s/s of injury. Patient remains free from compromised physical state related to surgery or anesthesia. Patient comfort maintained. Patient/family verbalize understanding of discharge instructions. Entry 1 In PACU II 05/22/19 14:25:00 Discharge from PACU 05/22/19 15:40:00 II Last Modified By: Sherri Parker RN 05/22/19 15:46:32 Post-Care Text: The patient remains free from s/s of injury. Patient's vital signs stable, circulation maintained, return to preop mental and physical status, opsite/dressing intact, minimal or absent nausea and vomiting, tolerates po intake. Patient verbalizes adequate pain control. Patient/family express understanding of discharge instructions. General Comments: fast-tracked to Room 204 Finalized By: Sherri Parker RN Document Signatures Signed By: Sherri Parker RN 05/22/19 15:46 [facility]-2019 [facility] Preoperative Record MAGR Pre-Op Record Summary Primary Physician: Dylan Faith DO Finalized Date/Time: 05/22/19 15:45:27 Pt. Name: DANYEL PHAM Michael Haney./Sex: 1955 FEMALE Med Rec #: [id number] Physician: Dylan Faith DO Financial #: [id number] Pt. Type: D Room/Bed: / Admit/Disch: 05/22/19 10:16:00 - Institution: Pre-Op Case Times MAGR Pre-Care Text: Patient will be optimally prepared for surgery. Patient is free from s/s of injury. Provide information to patient/family related to plan of care. Verify patient allergies. Confirm identity and verify consent before the operative or invasive procedure. Entry 1 Patient Arrival Time 05/22/19 10:25:00 Preop Departure 05/22/19 13:32:00 Last Modified By: Sherri Parker RN 05/22/19 15:45:23 Post-Care Text: Patient is prepared mentally and physically and is ready for surgery. The patient remains free from s/s of injury. Patient/family express understanding of plan of care and participate in decisions affecting his or her perioperrative plan of care. Allergies documented appropriately. Patient identifiers and consent correct. General Comments: Pt arrived ambulatory to W. Denies SOB, chest pain, or fever. Denies pacemaker. Pt has sleep apnea and brought C-Pap machine with her. Finalized By: Sherri Parker RN Document Signatures Signed By: Sherri Parker RN 05/22/19 15:45 [facility] Operative Report - Surgeon/P mustapha 05-22-2019 Operative Report - Surgeon/Physician Procedure: Kyphoplasty L3 cavity creation with the balloon and then cement augmentation Intraoperative bone biopsy Pre Op Diagnosis: Osteoporotic compression fracture M80.08XA Compression fracture L3 Post Op Diagnosis: Osteoporotic compression fracture M80.08XA Compression fracture L3 Surgeon: Dr. Fanny Faith DO Anesthesia: Conscious sedation with local Indication for Surgery: Intractable back pain with failure of conservative treatment. Findings: soft bone L3 Blood Loss: Scant Specimen: Bone [] Procedure Summary: Patient was brought to the operative suite and carefully positioned prone on the radiolucent table. I personally sit up unsupervised biplanar fluoroscopy. The fractured level was clearly identified with biplanar fluoroscopy, and counting twice up from the sacrum verifying appropriate level. The back was then sterilely prepped and draped in usual fashion and at this point a timeout was taken operating room. Radiodense marker was held over the spine and AP images were obtained to localize initial entry point for pedicle access. Local anesthetic was then injected subcutaneously at the entry points. Next a spinal needle was then inserted down to the pedicle on the [] side and good position was verified with both AP and lateral fluoroscopic images. Anesthetic was injected on the periosteum through the spinal needle. Next a stab wound was made and the trocar was advanced down to the pedicle. The trocar was carefully advanced through the pedicle verifying proper trajectory with multiple views of the C-arm. The vertebral body was accessed. A biopsy of bone was obtained, utilizing a trephine/bone biopsy needle through the trocar. Next a drill was used to create a path for the balloon. The procedure was repeated on the opposite side. The balloons were then inflated sequentially and gradually alternating sides. Meanwhile the cement was mixed on the back table. One of the balloons was removed and cement was injected. Next the opposite balloon was removed and additional cement was injected. The cement was allowed to harden and the trochars were carefully removed. I made sure there were no cemented tails extending into the soft tissues. The cement stayed contained within the vertebral body. A total of 8.5 cc of cement was injected. The back was cleansed with a moist sponge. The wounds were closed with Mastisol and Steri-Strips. Sterile dressings were applied. The patient was carefully log rolled off the table and then transported to recovery in stable condition. Complications: None [Electronically Signed on: 05/22/2019 14:47 EST] Dylan Faith DO [Verified on: 05/22/2019 14:47 EST] Dylan Faith DO [facility] Patient Handouton 05-22-[address] MENDOZA POST OPERATIVE KYPHOPLASTY OR LUMBAR SPINE SURGERY INSTRUCTIONS SURGEONS WRITTEN INSTRUTCTIONS: -Avoid strenuous lifting or repetitive bending for 6 weeks after surgery -You may shower in 1 day. Remove the outer dressing before showering. If you have steri strips in place, DO NOT remove the steri-strips. DO NOT submerge the wound under water such as sitting in a bathtub, hot tub, or going swimming -Cover the wound with a 4x4 gauze or large Band-Aid until the dressing or Band-Aid are clean and dry for 2 days. You can then leave it open to air -If you have any questions or concerns, please call the office at [phone] -Follow up as scheduled [facility] XR Fluoro Surgeryon 05-22-19 20 XR Fluoro Surgery EXAM: XR Spine Lumbosacral 2 or 3 Views, XR Fluoro Surgery HISTORY: SURGERY COMPARISON: None. TECHNIQUE: AP and lateral spot film views of the lumbar spine were obtained with 8 images obtained in total. FINDINGS: Initial images demonstrate spot film AP and lateral views of the L3 level. Subsequent images demonstrate vertebral augmentation procedure with placement of kyphoplasty cement within the expected location of the L3 vertebral body, correlate with results during the procedure, postprocedural changes appear unremarkable. 2 C-arms were used for the procedure with total fluoroscopy time measuring 79.5 seconds for the one and 81.0 seconds for the other with total fluoroscopy time of 160.5 seconds. IMPRESSION: Unremarkable post kyphoplasty changes at the L3 level, correlate with results during procedure. Fluoroscopy was utilized by the surgeon during this procedure. Final Dictated by: Charan Abreu MD Dictated DT/TM: 05/22/19 4:11 Signed (Electronic Signature): Charan Abreu MD 05/22/19 4:28 pm Technologist: PREETI NESBITT [facility] XR Spine Lumbosacral 2 or 3 Viewson 05-22-2019 XR Spine Lumbosacral 2 or 3 Views EXAM: XR Spine Lumbosacral 2 or 3 Views, XR Fluoro Surgery HISTORY: SURGERY COMPARISON: None. TECHNIQUE: AP and lateral spot film views of the lumbar spine were obtained with 8 images obtained in total. FINDINGS: Initial images demonstrate spot film AP and lateral views of the L3 level. Subsequent images demonstrate vertebral augmentation procedure with placement of kyphoplasty cement within the expected location of the L3 vertebral body, correlate with results during the procedure, postprocedural changes appear unremarkable. 2 C-arms were used for the procedure with total fluoroscopy time measuring 79.5 seconds for the one and 81.0 seconds for the other with total fluoroscopy time of 160.5 seconds. IMPRESSION: Unremarkable post kyphoplasty changes at the L3 level, correlate with results during procedure. Fluoroscopy was utilized by the surgeon during this procedure. Final Dictated by: Charan Abreu MD Dictated DT/TM: 05/22/19 4:11 Signed (Electronic Signature): Charan Abreu MD 05/22/19 4:28 pm Technologist: PREETI NESBITT [facility] Progress Note - Nurseon Progress Note - Nurse Spoke with pt and informed her to be at [facility] 1030 and NPO after MN, she verbalizes understanding. [Electronically Signed on: 05/19/2019 09:17 EST] Andree Alonso RN [Verified on: 05/19/2019 09:17 EST] Andree Alonso RN [facility] Coding Summaryon 05-18-2019 Coding Summary CODING DATE: 05/18/2019 [facility] STATUS: Home PAYOR: Commercial Insurance APC DESCRIPTION 5733 Level 3 Minor Procedures ADMIT DX: REASON FOR VISIT DX: Z01.818 Encounter for other preprocedural examination FINAL DX: PRINCIPAL: Z01.818 Encounter for other preprocedural examination SECONDARY: PYMT PROC APC STAT DESCRIPTION DOCTOR NAME DATE NOTE: The code number assigned matches the documented diagnosis and / or procedure in the patient's chart. However, the narrative phrase printed from the coding software may appear abbreviated, or result in slightly different terminology. Coded By: Nina Hamilton Date Saved: 05/18/2019 11:13 am Normal [facility] .Auto Diff 1on 05-17-2019 Auto Garza % 6 % Normal 1-12 [facility] Comment on above: Performed By: #### 7 [id number], [id number] #### [facility] (DEFAULT) [address] [place] [address] [id number] Baso Abs# 0.0 x10 Normal 0.0-0.2 [facility] Comment on above: Performed By: #### 7 [id number], [id number] #### [facility] (DEFAULT) [address] [place] [address] 24456 Basophils/100 WBC (Bld) 0.8 % Normal 0.2-2.0 [facility] Comment on above: Performed By: #### 7 [id number], [id number] #### [facility] (DEFAULT) [address] [place] [address] 86165 Eos Abs# 0.1 x10 Normal 0.0-0.4 [facility] Comment on above: Performed By: #### 7 [id number], [id number] #### [facility] (DEFAULT) [address] [place] [address] 22085 Eosinophils/100 WBC (Bld) 2.3 % Normal 0.9-4.0 [facility] Comment on above: Performed By: #### 7 [id number], [id number] #### [facility] (DEFAULT) [address] [place] [address] 10958 Lymphocytes (Bld) [#/Vol] 1.2 x10 Low 1.3-2.9 [facility] Comment on above: Performed By: #### 7 [id number], [id number] #### [facility] (DEFAULT) [address] [place] [address] 84142 Lymphocytes/100 WBC (Bld) 22 % Normal 14-48 [facility] Comment on above: Performed By: #### 7 [id number], [id number] #### [facility] (DEFAULT) [address] [place] [address] 01032 Garza Abs# 0.3 x10 Normal 0.0-0.8 [facility] Comment on above: Performed By: #### 7 [id number], [id number] #### [facility] (DEFAULT) [address] [place] [address] Neut Abs# 3.6 x10 Normal 1.5-9.2 [facility] Comment on above: Performed By: #### 7 [id number], [id number] #### [facility] (DEFAULT) [address] [place] [address] Neutrophils/100 WBC (Bld) 69 % Normal 44-88 [facility] Comment on above: Performed By: #### 7 [id number], [id number] #### [facility] (DEFAULT) [address] [place] [address] CBC w/ Auto Diffon 0 Erythrocyte distribution width (RBC) [Ratio] 12.8 % Normal 11.5-15.0 [facility] Comment on above: Performed By: #### 7 [id number], [id number] #### [facility] (DEFAULT) [address] [place] [address] Hematocrit (Bld) [Volume fraction] 39.7 % Normal 33.7-40.4 [facility] Comment on above: Performed By: #### 7 [id number], [id number] #### [facility] (DEFAULT) [address] [place] [address] Hemoglobin (Bld) [Mass/Vol] 13.1 g/dL Normal 11.3-15.9 [facility] Comment on above: Performed By: #### 7 [id number], [id number] #### [facility] (DEFAULT) [address] [place] [address] Man Diff? Auto Normal [facility] Comment on above: Performed By: #### 7 [id number], [id number] #### [facility] (DEFAULT) [address] [place] [address] MCH (RBC) [Entitic mass] 33 pg Normal 24-34 [facility] Comment on above: Performed By: #### 7 [id number], [id number] #### [facility] (DEFAULT) [address] [place] [address] 57803 MCHC (RBC) [Mass/Vol] 33 g/dL Normal 26-37 [facility] Comment on above: Performed By: #### 7 [id number], [id number] #### [facility] (DEFAULT) [address] [place] [address] 45258 MCV (RBC) [Entitic vol] 100 fL Normal 81-100 [facility] Comment on above: Performed By: #### 7 [id number], [id number] #### [facility] (DEFAULT) [address] [place] [address] Platelet mean volume (Bld) [Entitic vol] 9.8 fL Normal 6.3-10.2 [facility] Comment on above: Performed By: #### 7 [id number], [id number] #### [facility] (DEFAULT) [address] [place] [address] Platelets (Bld) [#/Vol] 353 x10 Normal 138-427 [facility] Comment on above: Performed By: #### 7 [id number], [id number] #### [facility] (DEFAULT) [address] [place] [address] RBC (Bld) [#/Vol] 3.95 x10 Normal 3.70-5.30 [facility] Comment on above: Performed By: #### 7 [id number], [id number] #### [facility] (DEFAULT) [address] [place] [address] WBC (Bld) [#/Vol] 5.2 x10 [facility] Comment on above: Performed By: #### 7 [id number], [id number] #### [facility] (DEFAULT) [address] [place] [address] Vital Signs Date Time Vital Sign Value Performing Clinician Facility 02-14-2024 13:46-0500 Body height 154.9 cm Kay Reggie [employer] Work Phone: [facility] 02-14-2024 13:46-0500 Body mass index (BMI) [Ratio] 32.88 kg/m2 Kay Paredes DO Work Phone: [facility] 02-14-2024 13:46-0500 Body weight 78.93 kg Kay Paredes DO Work Phone: [facility] 02-14-2024 13:46-0500 Diastolic blood pressure 68 mm[Hg] Kay Paredes DO Work Phone: [facility] 02-14-2024 13:46-0500 Heart rate 85 /min Kay Paredes DO Work Phone: [facility] 02-14-2024 13:46-0500 SaO2% (BldA) [Mass fraction] 94 % Kay Paredes DO Work Phone: [facility] 02-14-2024 13:46-0500 Systolic blood pressure 128 mm[Hg] Kay Paredes DO Work Phone: [facility] 02-03-2024 10:00-0400 Body height 154.9 cm Lisbet Suh [employer] Work Phone: [facility] 02-03-2024 10:00-0400 Body mass index (BMI) [Ratio] 32.42 kg/m2 Lisbet Suh [employer] Work Phone: [facility] 02-03-2024 10:00-0400 Body temperature 96.8 [degF] Lisbte Suh [employer] Work Phone: [facility] 02-03-2024 10:00-0400 Body weight 77.84 kg Lisbet Suh [employer] Work Phone: [facility] 02-03-2024 10:00-0400 Diastolic blood pressure 78 mm[Hg] Lisbet Suh [employer] Work Phone: [facility] 02-03-2024 10:00-0400 Heart rate 79 /min Lisbet Suh [employer] Work Phone: [facility] 02-03-2024 10:00-0400 SaO2% (BldA) [Mass fraction] 98 % Lisbet Suh [employer] Work Phone: [facility] 02-03-2024 10:00-0400 Systolic blood pressure 126 mm[Hg] Lisbet Suh [employer] Work Phone: [facility] 01-24-2024 16:31-0400 Body height 154.9 cm Lisbet Suh [employer] Work Phone: [facility] 01-24-2024 16:31-0400 Body mass index (BMI) [Ratio] 32.42 kg/m2 Lisbet Suh [employer] Work Phone: [facility] 01-24-2024 16:31-0400 Body weight 77.84 kg Lisbet Suh [employer] Work Phone: [facility] 01-24-2024 16:31-0400 Diastolic blood pressure 80 mm[Hg] Lisbet Suh [employer] Work Phone: [facility] 01-24-2024 16:31-0400 Heart rate 83 /min Lisbet Suh [employer] Work Phone: [facility] 01-24-2024 16:31-0400 SaO2% (BldA) [Mass fraction] 98 % Lisbet Suh [employer] Work Phone: [facility] 01-24-2024 16:31-0400 Systolic blood pressure 130 mm[Hg] Lisbet Suh [employer] Work Phone: [facility] 05-31-2023 09:56-0500 Body height 154.9 cm Pfo 3 [facility] 05-31-2023 09:56-0500 Body mass index (BMI) [Ratio] 29.49 kg/m2 Pfo 3 [facility] 05-31-2023 09:56-0500 Body temperature 97.59 [degF] Pfo 3 [facility] 05-31-2023 09:56-0500 Body weight 70.76 kg Pfo 3 [facility] 05-31-2023 09:56-0500 Diastolic blood pressure 60 mm[Hg] Pfo 3 [facility] 02-19-2024 09:56-0500 Heart rate 79 /min Pfo 3 [facility] 05-31-2023 09:56-0500 Respiratory rate 16 /min [facility] 05-31-2023 09:56-0500 SaO2% (BldA) [Mass fraction] 100 % [facility] 09:56-0500 Systolic blood pressure 118 mm[Hg] Pfo 3 [facility] [employer] [facility] Encounters Encounter Date Encounter Type Care Provider Facility Start: 02-14-2024 End: 02-14-2024 Bamboo flowsheet Kay Paredes DO Work Phone: [facility] Start: 02-14-2024 End: 02-14-2024 Bamboo flowsheet Kay Paredes DO Work Phone: [facility] Start: 02-14-2024 End: 02-14-2024 Patient encounter procedure Kay Paredes DO Work Phone: [facility] Comment on above: History of colonosco py with polypectomy (Primary Dx) Start: 02-14-2024 End: 02-14-2024 ambulatory KAY PAREDES Not Available Start: 02-03-2024 End: 02-03-2024 Bamboo flowsheet Lisbet Suh [employer] Work Phone: [facility] Start: 02-03-2024 End: 02-03-2024 Bamboo flowsheet Lisbet Suh [employer] Work Phone: [facility] Start: 02-03-2024 End: 02-03-2024 Office outpatient visit 25 minutes Lisbet Suh [employer] Work Phone: [facility] Comment on above: Slow transit constip ation (Primary Dx); Encounter for screening for malignant neoplasm of colon; History of colon polyps; Class 1 obesity without serious comorbidity with body mass index (BMI) of 32.0 to 32.9 in adult, unspecified obesity type Start: 02-03-2024 End: 02-03-2024 ambulatory LISBET SUH Not Available Start: 01-31-2024 End: 01-31-2024 Telephone encounter Lisbet Suh [employer] Work Phone: [facility] Start: 01-26-2024 End: 01-26-2024 Telephone encounter Lisbet Suh [employer] Work Phone: [facility] Start: 01-24-2024 End: 01-24-2024 Office outpatient visit 15 minutes Lisbet Suh [employer] Work Phone: [facility] Comment on above: Vertigo (Primary Dx) ; Nasal congestion; Otitis media with effusion, left Start: 01-24-2024 End: 01-24-2024 ambulatory LISBET KAMPFER Not Available Start: 01-24-2024 End: 01-24-2024 Bamboo flowsheet Lisbet Suh [employer] Work Phone: [facility] Start: 01-24-2024 End: 01-24-2024 Bamboo flowsheet Lisbet Suh [employer] Work Phone: [facility] Start: 01-11-2024 End: 01-11-2024 ambulatory LISBET KAMPFER Not Available Start: 12-22-2023 End: 12-22-2023 ambulatory LISBET KAMPFER Not Available Start: 10-22-2023 End: 10-22-2023 ambulatory ELIZABETH A ARMANI Not Available Start: 10-07-2023 End: 10-07-2023 ambulatory [facility] Start: 10-06-2023 End: 10-06-2023 ambulatory LISBET KAMPFER Not Available Start: 09-23-2023 End: 09-23-2023 ambulatory NISHI B APLING Not Available Start: 09-20-2023 End: 09-20-2023 ambulatory LISBET KAMPFER Not Available Start: 07-26-2023 End: 07-26-2023 ambulatory LISBET KAMPFER Not Available Start: 05-31-2023 End: 05-31-2023 ambulatory Pfo Infusion Chair 3 Sarah Gay [facility] - [facility] On[facility] Comment on above: Senile osteoporosis (Primary Dx) Start: 05-19-2023 Orders Only Elizabeth Bejessie [facility] Work Phone: Sarah Givens [facility] - Medical Oncology Comment on above: Senile osteoporosis (Primary Dx) Start: 05-18-2023 Telephone encounter Nishi coelho [employer] Work Phone: [facility] Start: 05-17-2023 End: 05-17-2023 ambulatory NISHI BASSETT Not Available Start: 05-17-2023 End: 05-17-2023 Office outpatient visit 15 minutes Nishi Bassett [employer] Work Phone: [facility] Comment on above: Age-related osteopor osis without current pathological fracture (CMS/HCC) (Primary Dx) Start: 05-10-2023 Refill Lisbet Suh [employer] Work Phone: [facility] Comment on above: Class 1 obesity due to excess calories with serious comorbidity and body mass index (BMI) of 30.0 to 30.9 in adult Start: 03-17-2023 End: 03-17-2023 ambulatory LISBET SUH Not Available Start: 03-12-2023 End: 03-12-2023 ambulatory LISBET SUH Not Available Start: 05-22-2021 Chart abstracting Mer Givens [facility] - Medical Oncology Procedures Date Procedure Procedure Detail Performing Clinician Start: 01-24-2024 STATUS COVID-19/FLU Regina Suh [employer] Work Phone: Start: 01-11-2024 Mammography Lisbet medel [employer] Work Phone: Start: 05-17-2023 MULTIPLE LABS Not In Sy stem Ref Prov Start: 11-04-2022 Mammography Nishi faith [employer] Work Phone: Start: 08-18-2022 H/O: hysterectomy History of hystere ctomy Nishi Bassett [employer] Work Phone: Start: 05-13-2021 MULTIPLE LABS Not In Sy stem Ref Prov Start: 02-17-2021 Colonoscopy Nishi faith [employer] Work Phone: Plan of Treatment Date Care Activity Detail Author Start: 02-17-2031 Screening for malignant neoplasm of colon [facility] Start: 07-04-2028 DTaP,Tdap and Td Vaccines (4 - Td or Tdap) DTaP,Tdap and Td Vaccines (4 - Td or Tdap) [facility] Start: 09-26-2025 End: 09-26-2025 Patient encounter procedure 09/26/2025 9:30 AM EDT Office Visit [facility] [address] [place] [address] Nishi Bassett NP [address] [place] [address] [facility] Start: 01-10-2025 Screening for malignant neoplasm of breast Mammogram [facility] Start: 03-25-2024 Adult BMI Screening Adult BMI Screen ing [facility] Start: 03-25-2024 Tobacco Screening Tobacco Screening [facility] Start: 03-12-2024 Medicare Annual Wellness (AWV) Medicare Annual Wellness (AWV) [facility] Start: 02-14-2024 End: 02-14-2024 Patient encounter procedure 02/14/2024 1:45 PM EST Office Visit [facility] [address] [place] [phone] Kay Paredes DO [address] [place] [address] Arrived [facility] Comment on above: Arrived Start: 02-03-2024 End: 02-03-2024 Patient encounter procedure 02/03/2024 10:00 AM EDT Office Visit [facility] [address] [place] [phone] Lisbet Suh NP [address] [place] [address] Arrived [facility] Comment on above: Arrived Start: 01-24-2024 End: 01-24-2024 Patient encounter procedure 01/24/2024 4:30 PM EDT Office Visit [facility] [address] [facility] [place] [phone] Lisbet Shu NP [address] [facility] [place] [address] Arrived [facility] Comment on above: Arrived Start: 12-12-2023 Influenza vaccination Influenza Vacc ine (#1) [facility] Start: 11-05-2023 Screening for malignant neoplasm of breast Mammogram [facility] Start: 10-07-2023 End: 10-07-2023 Patient encounter procedure 10/07/2023 9:50 AM EDT Office Visit [facility] [address] [place] [address] Francisco Seymour MD [address], [address] [address] [facility] Start: 2023 End: 2023 Patient encounter procedure 2023 1:00 PM EDT Office Visit [facility] [address] [place] [phone] Lisbet Suh NP [address] [place] [address] [facility] Start: 08-15-2023 End: 05-17-2024 DXA Skeletal system Views for bone density DEXA bone density Imaging Routine Age-related osteoporosis without current pathological fracture (CMS/HCC) Expected: 08/15/2023, Expires: 05/17/2024 [facility] Comment on above: Expected: 08/15/2023 , Expires: 05/17/2024 Start: 05-17-2023 End: 05-17-2024 Calcium [Mass/volume] in Serum or Plasma Calcium Lab Routine Age-related osteoporosis without current pathological fracture (CMS/HCC) Expected: 05/17/2023 (Approximate), Expires: 05/17/2024 [facility] Work Phone: Comment on above: Expected: 05/17/2023 (Approximate), Expires: 05/17/2024 Start: 05-17-2023 End: 05-17-2024 Creatinine [Mass/volume] in Serum or Plasma Creatinine, Serum Lab Routine Age-related osteoporosis without current pathological fracture (CMS/HCC) Expected: 05/17/2023 (Approximate), Expires: 05/17/2024 [facility] Comment on above: Expected: 05/17/2023 (Approximate), Expires: 05/17/2024 Start: 05-17-2023 End: 05-17-2024 Urea nitrogen [Mass/volume] in Serum or Plasma BUN Lab Routine Age-related osteoporosis without current pathological fracture (CMS/HCC) Expected: 05/17/2023 (Approximate), Expires: 05/17/2024 [facility] Comment on above: Expected: 05/17/2023 (Approximate), Expires: 05/17/2024 Start: 12-11-2022 COVID-19 Vaccine () COVID-19 Vaccine () [facility] Start: 09-27-2020 Fall Risk Screening Fall Risk Screen ing [facility] Start: 09-27-2000 Screening for malignant neoplasm of colon Colon Cancer Screening 3 Year Cologuard [facility] Start: 09-27-1973 Adult BMI Follow Up Plan Adult BMI Follow Up Plan [facility] Start: 1967 Depression Screening Depression Scre [facility] Start: 1955 Screening for malignant neoplasm of colon [facility] Immunizations Immunization Date Immunization Notes Care Provider Rickie lassiter 03-12-2023 influenza, high dose seasonal, preservative-free Nishi Bassett [employer] Work Phone: [facility] 03-12-2023 influenza virus vacc ine, unspecified formulation Lisbet Suh [employer] Work Phone: [facility] 01-26-2022 Influenza, High-dose Seasonal, Quadrivalent, Preservative Free Lisbet Suh [employer] Work Phone: [facility] 01-26-2022 influenza, seasonal, injectable Nishi Bassett [employer] Work Phone: [facility] 01-26-2022 Moderna SARS-CoV-2 Vaccination Nishi Bassett [employer] Work Phone: [facility] 12-20-2021 zoster vaccine recombinant M tracy Bassett [employer] Work Phone: [facility] 10-17-2021 zoster vaccine recombinant M tracy Bassett [employer] Work Phone: [facility] 03-14-2021 Moderna SARS-CoV-2 Vaccination Nishi Bassett [employer] Work Phone: [facility] 02-08-2021 Influenza, High-dose Seasonal, Quadrivalent, Preservative Free Lisbet Kampfer [employer] Work Phone: [facility] 02-08-2021 influenza, seasonal, injectable Nishi Bassett [employer] Work Phone: [facility] 02-08-2021 pneumococcal polysaccharide vaccine, 23 valent Nishi Bassett [employer] Work Phone: [facility] 07-05-2020 Moderna SARS-CoV-2 Vaccination Nishi Bassett [employer] Work Phone: [facility] 06-05-2020 Moderna SARS-CoV-2 Vaccination Nishi Bassett [employer] Work Phone: [facility] 01-08-2020 influenza, injectabl e, quadrivalent, preservative free Lisbet Kampfer [employer] Work Phone: [facility] 05-10-2019 influenza, injectabl e, quadrivalent, preservative free Lisbet Kampfer [employer] Work Phone: [facility] 05-10-2019 influenza, seasonal, injectable Nishi Bassett [employer] Work Phone: [facility] 07-04-2018 tetanus toxoid, redu adrian diphtheria toxoid, and acellular pertussis vaccine, adsorbed Nishi Bassett [employer] Work Phone: [facility] 01-21-2018 influenza, injectabl e, quadrivalent, contains preservative Lisbet Kampfer [employer] Work Phone: [facility] 01-21-2018 influenza, seasonal, injectable Nishi Bassett [employer] Work Phone: [facility] 03-12-2017 influenza, injectabl e, quadrivalent, contains preservative Lisbet Kampfer [employer] Work Phone: [facility] 03-12-2017 influenza, seasonal, injectable Nishi Bassett [employer] Work Phone: [facility] 08-03-2016 tetanus toxoid, redu adrian diphtheria toxoid, and acellular pertussis vaccine, adsorbed Nishi Bassett [employer] Work Phone: [facility] 04-30-2016 pneumococcal conjuga te vaccine, 13 valent Nishi Bassett [employer] Work Phone: [facility] 01-16-2016 zoster vaccine, live Nishi pepper [employer] Work Phone: [facility] 01-13-2016 influenza, injectabl e, quadrivalent, preservative free Lisbet Kampfer [employer] Work Phone: [facility] 12-10-2015 influenza, injectabl e, quadrivalent, preservative free Lisbet Kampfer [employer] Work Phone: [facility] 01-25-2015 influenza virus vacc ine, whole virus Lisbet Kampfer [employer] Work Phone: [facility] 02-19-2014 tetanus toxoid, redu adrian diphtheria toxoid, and acellular pertussis vaccine, adsorbed Nishi Bassett [employer] Work Phone: [facility] 01-10-2014 influenza virus vacc ine, whole virus Lisbet Kampfer [employer] Work Phone: [facility] 01-24-2013 influenza, seasonal, injectable, preservative free Lisbet Kampfer [employer] Work Phone: [facility] 01-02-2013 pneumococcal polysaccharide vaccine, 23 valent Nishi Bassett [employer] Work Phone: [facility] Payers Date Payer Category Payer Medicaid [employer] MEDICARE A DVANTAGE [id number] 2023 Medicare MEDICARE [id number] 2023 Medicare [id number] 2023 Medicare [id number] 2015 Unknown [id number]. [id number] 2015 Unknown [id number] 1955 Unknown [id number] [id number] 1955 Unknown [id number] [id number] 1955 Unknown [id number] 2.16.840.1.924576.3.579.2.9 1955 Unknown [id number] 2.16.840.1.432592.3.579.2.1258 1955 Unknown [id number] 2.16.840.1.498659.3.579.2.1259 1955 Unknown [id number] 2.16.840.1.765166.3.579.2.1258 1955 Unknown [id number] 2.16.840.1.312491.3.579.2.9 1955 Unknown [id number] 2.16.840.1.898813.3.579.2.1258 1955 Unknown [id number] 2.16.840.1.569542.3.579.2.1258 1955 Unknown [id number] 2.16.840.1.956177.3.579.2.1258 1955 Unknown [id number] 2.16.840.1.651593.3.579.2.1258 1955 Unknown [id number] 2.16.840.1.564694.3.579.2.1258 1955 Unknown [id number] 2.16.840.1.127169.3.579.2.1258 1955 Unknown [id number] 2.16.840.1.931761.3.579.2.1258 1955 Unknown [id number] 2.16.840.1.129050.3.579.2.1258 1955 Unknown [id number] 2.16.840.1.547478.3.579.2.1258 1955 Unknown [id number] Social History Date Type Detail Facility Start: 09-04-2022 End: 11-09-2022 Tobacco smoking status [facility] Ex-smoker [facility] End: 08-07-2014 History of tobacco use Current smoker [facility] End: 08-07-2014 History of tobacco use Cigarette Smoker [facility] Start: 09-04-2022 End: 11-09-2022 Tobacco use and exposure Smokeless tobacco non-user [facility] Start: 05-17-2023 End: 02-14-2024 Alcohol intake Lifetime non-drinker (finding) [facility] Start: 03-12-2023 End: 05-17-2023 History of Social function [facility] Start: 03-12-2023 End: 05-17-2023 Tobacco use panel [facility] Start: 11-03-2022 Alcohol Comment caffeine: 1-2 cups/day coffee, soda [facility] Start: 1955 Sex Assigned At [place] on file [place] [facility] [place] [facility] Start: 06-24-2022 Gender identity Identifies as female gender (finding) [facility] Start: 03-25-2023 End: 05-31-2023 Alcohol intake Current non-drinker of alcohol (finding) [facility] Frequency of Alcohol Consumption Never [facility] Start: 07-13-2021 End: 07-23-2021 Exposure to SARS-CoV-2 (event) Not sure [facility] How often to you hav e a drink containing alcohol? Never [facility] Medical Equipment Procedure Code Equipment Code Equipment Origin al Text Equipment Identifier Dates Inject 1 each un farzaneh the skin in the morning. Use as instructed. [id number] Start: 03-12-2023 End: 06-20-2023 Inject 1 each un farzaneh the skin Daily Use as instructed [id number] Start: 2023 End: 01-24-2024 Clinical Notes 05-17-2023 to 02-14-2024 Kay Paredes DO - 02/14/2024 1:45 PM Thelma Suh NP - 02/03/2024 10:00 AM EDTTelephone Encounter - Florence Michaels - 01/31/2024 8:04 AM Mitra Suh NP - 01/24/2024 4:30 PM EDT Note Date & Type Note Facility 02-14-2024 History of Presen t illness Narrative General Surgery H&P Danyel Pham 1955 Danyel Pham is a 68 y.o. female presents for colonoscopy consult. Last colonoscopy was 3 years and she has had polyps on several of her colonoscopies. Pt admits to some abdominal pain but relates it to her coming off a GLP1 recently has her symptoms have been getting better. Pt denies rectal bleeding. Pt denies to changes in bowel movements. Pt denies a family history of colon cancer that they know of. Pt denies any concern today. Denies changes in caliber of stools. Denies hx of unplanned weight loss. Denies fevers, chills, or sweats. Denies nausea or vomiting. Last colonoscopy was 2020. On ASA 81mg SUBJECTIVE: MEDICATIONS: ALLERGIES Current Outpatient Medications Medication Instructions aspirin 81 mg, Daily bisacodyl (DULCOLAX) 5 mg, Oral, Once, Do not crush, chew, or split. Take as detailed on clinic hand out for colonoscopy prep calcium carbonate (CALCIUM 600) 600 mg, Daily cetirizine (ZyrTEC) 10 MG tablet Take by mouth cholecalciferol (Vitamin D-3) 25 MCG (1000 UT) capsule 2 capsules, Daily docusate sodium (COLACE) 100 mg, Oral, Daily fluticasone (Flonase Allergy Relief) 50 MCG/ACT nasal spray 1 spray, Each Nostril, Daily, Shake gently. Before first use, prime pump. After use, clean tip and replace cap. montelukast (SINGULAIR) 10 mg, Oral, Daily Multiple Vitamin (multivitamin) tablet 1 tablet, Daily polyethylene glycol (PEG) 3350 (GLYCOLAX) 238 g, Oral, Once, Take as detailed from clinic hand out for colonoscopy prep saccharomyces boulardii (FLORASTOR) 250 mg, 2 times daily Zinc Gluconate 50 MG capsule 1 capsule, Daily Allergies Allergen Reactions Lipitor [Atorvastatin] GI intolerance Diarrhea . 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 Compression fracture of thoracic vertebra, non-traumatic [place] [place] 08/19/2022 DVT (deep venous thrombosis) [place] [place] 2012 left leg Dysthymia ([facility] [place] 08/18/2022 Mixed hyperlipidemia ([facility] [place] 08/18/2022 Obesity 08/19/2022 CORY (obstructive sleep apnea) 08/18/2022 Osteoporosis ([facility] [place] Seasonal allergic rhinitis 08/18/2022 Situational anxiety 08/19/2022 Stress and adjustment reaction ([facility] [place]) 08/19/2022 Social History Tobacco Use Smoking status: Former Current packs/day: 0.00 Types: Cigarettes Quit date: 09/10/2012 Years since quittin.4 Smokeless tobacco: Never Vaping Use Vaping status: Never Used Substance Use Topics Alcohol use: Never Comment: caffeine: 1-2 cups/day coffee, soda Drug use: Never Past Surgical History: Procedure Laterality Date APPENDECTOMY 1988 CHOLECYSTECTOMY 2008 HYSTERECTOMY 2006 IR KYPHOPLASTY LUMBAR 06/2019 L3 SEPTOPLASTY 03/27/2014 [facility] TRIGGER FINGER RELEASE 07/23/2021 left MF Family History Problem Relation Name Age of Onset Lung cancer Mother Brain cancer Father Diabetes Father Other (heart problem) Sister No Known Problems Daughter 1 No Known Problems Son 1 Allergies Allergen Reactions Lipitor [Atorvastatin] GI intolerance Diarrhea . Past Surgical History: Procedure Laterality Date APPENDECTOMY 1988 CHOLECYSTECTOMY 2008 HYSTERECTOMY 2005 IR KYPHOPLASTY LUMBAR 06/2019 L3 SEPTOPLASTY 03/27/2014 [facility] TRIGGER FINGER RELEASE 07/23/2021 left MF Tobacco Use: Medium Risk (02/14/2024) Patient History Smoking Tobacco Use: Former Smokeless Tobacco Use: Never Passive Exposure: Not on file Alcohol Use: Not At Risk (07/26/2023) AUDIT-C Frequency of Alcohol Consumption: Never Average Number of Drinks: Patient does not drink Frequency of Binge Drinking: Never Depression: Not at risk (03/12/2023) PHQ-2 PHQ-2 Score: 0 Physical Activity: Not on file REVIEW OF SYMPTOMS: Review of Systems All other systems reviewed and are negative. 10 systems were reviewed. Positives noted above. Remainder are negative per CMS guidelines. OBJECTIVE: Visit Vitals BP 128/68 Pulse 85 Ht 5' 1 Wt 174 lb SpO2 94% BMI 32.88 kg/m OB Status Hysterectomy Smoking Status Former BSA 1.84 m Physical Exam Vitals reviewed. General: AAOx3, NAD Head: atraumatic normocephalic Neck: trachea midline. No masses or lymphadenopathy Heart: Regular rate and rhythm Lungs: equal chest rise and fall, non labored breathing Abdomen: soft, nontender, and non distended Ext: motor 5/5 all extremities with no gross deformities Psych: alert and oriented, behavior appropriate ASSESSMENT AND PLAN: Assessment/Plan Diagnoses and all orders for this visit: History of colonoscopy with polypectomy - bisacodyl (Dulcolax) 5 MG EC tablet; Take 1 tablet (5 mg) by mouth 1 time for 1 dose Do not crush, chew, or split. Take as detailed on clinic hand out for colonoscopy prep - polyethylene glycol, PEG, 3350 (Glycolax) 17 GM/SCOOP powder; Take 238 g by mouth 1 (one) time for 1 dose Take as detailed from clinic hand out for colonoscopy prep Plan: Patient is average risk for colon cancer. Colonoscopy can be scheduled electively. Patient informed of the risks of procedure which include but not limited to bleeding, perforation, and risks of anesthesia. Patient understood risks and signed informed consent for the procedure under monitored anesthesia care. Handout for bowel prep provided in clinic. Patient was informed of the need for a ride home from the hospital and the need for someone to be with them for the following 24 hrs post procedure. Hold ASA 7 days prior Thank you, Tomas Paredes DO documented in this encounter [facility] 02-03-2024 History of Presen t illness Narrative Images from the original note were not included. Danyel Pham is a 68 y.o. female presents with chief complaint of Bloated HPI: Patient is here since she is having bloated stomach everyday that started Wednesday. She has been doing probiotic increasing fluid, and metamucil (as needed or every other day. She states that she also has some smelly gas but when she does let out gas she did let out a stool. She is wondering if she is okay to take Berbacil supplement. She is having a bowel movement in the morning, doesn't feel like she can fully get it out, Will sometimes have to go later as well. Has to strain. She is due for colonoscopy next month as well, has not scheduled. History of colon polyps SUBJECTIVE: MEDICATIONS: ALLERGIES Current Outpatient Medications Medication Instructions aspirin 81 mg, Daily calcium carbonate (CALCIUM 600) 600 mg, Daily cetirizine (ZyrTEC) 10 MG tablet Take by mouth cholecalciferol (Vitamin D-3) 25 MCG (1000 UT) capsule 2 capsules, Daily fluticasone (Flonase Allergy Relief) 50 MCG/ACT nasal spray 1 spray, Each Nostril, Daily, Shake gently. Before first use, prime pump. After use, clean tip and replace cap. montelukast (SINGULAIR) 10 mg, Oral, Daily Multiple Vitamin (multivitamin) tablet 1 tablet, Daily saccharomyces boulardii (FLORASTOR) 250 mg, 2 times daily Zinc Gluconate 50 MG capsule 1 capsule, Daily Allergies Allergen Reactions Lipitor [Atorvastatin] GI intolerance Diarrhea . 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 Compression fracture of thoracic vertebra, non-traumatic [place] [place] 08/19/2022 DVT (deep venous thrombosis) [place] [place] 2012 left leg Dysthymia ([facility] [place]) 08/18/2022 Mixed hyperlipidemia ([facility] [place]) 08/18/2022 Obesity 08/19/2022 CORY (obstructive sleep apnea) 08/18/2022 Osteoporosis ([facility] [place] Seasonal allergic rhinitis 08/18/2022 Situational anxiety 08/19/2022 Stress and adjustment reaction ([facility] [place] 08/19/2022 Social History Tobacco Use Smoking status: Former Current packs/day: 0.00 Types: Cigarettes Quit date: 09/10/2012 Years since quittin.4 Smokeless tobacco: Never Vaping Use Vaping status: Never Used Substance Use Topics Alcohol use: Never Comment: caffeine: 1-2 cups/day coffee, soda Drug use: Never Past Surgical History: Procedure Laterality Date APPENDECTOMY 1988 CHOLECYSTECTOMY 2008 HYSTERECTOMY 2006 IR KYPHOPLASTY LUMBAR 06/2019 L3 SEPTOPLASTY 03/27/2014 [facility] TRIGGER FINGER RELEASE 07/23/2021 left MF REVIEW OF SYMPTOMS: Review of Systems All other systems reviewed and are negative. OBJECTIVE: Visit Vitals BP 126/78 Pulse 79 Temp 96.8 F Ht 5' 1 Wt 171 lb 9.6 oz SpO2 98% BMI 32.42 kg/m OB Status Hysterectomy Smoking Status Former BSA 1.83 m Physical Exam Vitals reviewed. HENT: Head: Normocephalic and atraumatic. Nose: Nose normal. Mouth/Throat: Mouth: Mucous membranes are moist. Eyes: Pupils: Pupils are equal, round, and reactive to light. Cardiovascular: Rate and Rhythm: Normal rate and regular rhythm. Pulses: Normal pulses. Heart sounds: Normal heart sounds. Pulmonary: Effort: Pulmonary effort is normal. Breath sounds: Normal breath sounds. Musculoskeletal: Cervical back: Normal range of motion and neck supple. Skin: General: Skin is warm and dry. Capillary Refill: Capillary refill takes less than 2 seconds. Findings: No rash. Neurological: General: No focal deficit present. Mental Status: She is alert and oriented to person, place, and time. ASSESSMENT AND PLAN: Assessment/Plan Diagnoses and all orders for this visit: Slow transit constipation - docusate sodium (Colace) 100 MG capsule; Take 1 capsule (100 mg) by mouth Daily -Add colace. Continue miralax daily. Encouraged to be as active as possible to help with intestinal motility. Recommend good water intake/hydration and fiber in diet (reviewed sources such as veggetables and fruits and nuts as well as otc bars/supplements).Encouraged to have a fiber snack daily to maintain good motility. Encounter for screening for malignant neoplasm of colon - Ambulatory referral to General Surgery; Future History of colon polyps - Ambulatory referral to General Surgery; Future Class 1 obesity without serious comorbidity with body mass index (BMI) of 32.0 to 32.9 in adult, unspecified obesity type -Ok to use berberine but educated patient OTC supplements are not regulated by the FDA. Focus on healthy eating habits, increase physical exercise. documented in this encounter [facility] 01-31-2024 Telephone encount er Note Patient was speaking with her sister yesterday who told her that her doctor found yeast in her body and prescribed something for her. Patient states that when she has gas it has a terrible smell and she thinks it has something to do with yeast in her body. Please advise pt. Thank you. [facility] 01-31-2024 Miscellaneous Notes Formattin g of this note might be different from the original. Patient was speaking with her sister yesterday who told her that her doctor found yeast in her body and prescribed something for her. Patient states that when she has gas it has a terrible smell and she thinks it has something to do with yeast in her body. Please advise pt. Thank you. documented in this encounter [facility] 01-26-2024 Telephone encount er Note Pt would like your opinion on Weight loss pill BERBACIL made by [employer] [facility] She would like imput from you before she orders it. [phone] [facility] 01-26-2024 Miscellaneous Notes Formattin g of this note might be different from the original. Pt would like your opinion on Weight loss pill BERBACIL made by [employer] [facility] She would like imput from you before she orders it. [phone] documented in this encounter [facility] 01-24-2024 History of Presen t illness Narrative Images from the original note were not included. Danyel Pham is a 68 y.o. female presents with chief complaint of Dizziness (Started Wednesday, ) HPI: HPI Symptoms started Wednesday. She tried cleaning her ear out with currette she purchased OTC, started feeling like her ear is full, will hear popping and crackling, gets dizzy when bending forward, not using flonase currently. SUBJECTIVE: MEDICATIONS: Current Outpatient Medications Medication Instructions aspirin 81 mg, Daily calcium carbonate (CALCIUM 600) 600 mg, Daily cetirizine (ZyrTEC) 10 MG tablet Take by mouth cholecalciferol (Vitamin D-3) 25 MCG (1000 UT) capsule 2 capsules, Daily fluticasone (Flonase Allergy Relief) 50 MCG/ACT nasal spray 1 spray, Each Nostril, Daily, Shake gently. Before first use, prime pump. After use, clean tip and replace cap. montelukast (SINGULAIR) 10 mg, Oral, Daily Multiple Vitamin (multivitamin) tablet 1 tablet, Daily Zinc Gluconate 50 MG capsule 1 capsule, Daily REVIEW OF SYMPTOMS: Review of Systems OBJECTIVE: Visit Vitals BP 130/80 (BP Location: Right arm, Patient Position: Sitting, BP Cuff Size: Adult) Pulse 83 Ht 5' 1 Wt 171 lb 9.6 oz SpO2 98% BMI 32.42 kg/m OB Status Hysterectomy Smoking Status Former BSA 1.83 m Physical Exam Vitals reviewed. Constitutional: Appearance: She is obese. HENT: Head: Normocephalic and atraumatic. Right Ear: Tympanic membrane normal. Left Ear: A middle ear effusion is present. Nose: Mucosal edema and rhinorrhea present. Comments: Scab noted to left nare Mouth/Throat: Mouth: Mucous membranes are moist. Eyes: Pupils: Pupils are equal, round, and reactive to light. Cardiovascular: Rate and Rhythm: Normal rate and regular rhythm. Pulses: Normal pulses. Heart sounds: Normal heart sounds. Pulmonary: Effort: Pulmonary effort is normal. Breath sounds: Normal breath sounds. Musculoskeletal: Cervical back: Normal range of motion and neck supple. Skin: General: Skin is warm and dry. Capillary Refill: Capillary refill takes less than 2 seconds. Findings: No rash. Neurological: General: No focal deficit present. Mental Status: She is alert and oriented to person, place, and time. ASSESSMENT AND PLAN: Assessment/Plan Diagnoses and all orders for this visit: Vertigo - meclizine (Antivert) 12.5 MG tablet; Take 1 tablet (12.5 mg) by mouth 3 (three) times a day as needed for dizziness for up to 5 days -most likely r/t inner ear, will trial her on meclizine, instructed to restart her flonase to help dry up secretions Nasal congestion - STATUS COVID-19/FLU Otitis media with effusion, left -Most likely viral in nature, will need to run its course. Educated patient viral infections such as colds/flus do not respond to abx and typically do not begin to improve until 7-10 days into the illness. Discussed symptomatic treatment with patient. Humidifier at bedside to moisten area. Push fluids. Rest. Good handwashing. Follow up if symptoms do not improve. To ER for markedly worsening symptoms. documented in this encounter [facility] 05-31-2023 History of Presen t illness Narrative Patient is here for reclast. This is her second dose. Patient educated on procedure and side effects. Labs WNL. She denies any upcoming dental procedures. IV started. Reclast infused over 15 minutes. Patient tolerated it well without issues. IV flushed and removed. Patient discharged in stable condition. [facility] Tele[facility] encount er Note Patient called saying she has constipation when she does have bowl movement it is hard balls. She was wanting to know what stool softener OTC you would recommend. Thank you [facility] 05-20-2023 Miscellaneous Notes Formattin g of this note might be different from the original. Patient called saying she has constipation when she does have bowl movement it is hard balls. She was wanting to know what stool softener OTC you would recommend. Thank you documented in this encounter [facility] 05-18-2023 Telephone encount er Note Pt called back asking if she will need to stop her Vitamin D and Calcium 3 days prior to reclast? [facility] 05-18-2023 Miscellaneous Notes Formattin g of this note might be different from the original. Pt called back asking if she will need to stop her Vitamin D and Calcium 3 days prior to reclast? documented in this encounter [facility] 05-17-2023 History of Presen t illness Narrative Subjective Patient ID: Danyel Pham is a 67 y.o. female. Osteoporosis assessment: Height and weight taken today in office without shoes on 155 lbs, 61 Risk factors (modifiable): smoking history for 20 years- last smoked 12 years ago (2011). 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 DEXA scan results: [facility] 08/16/2019 LT femur neck -1.1, right femur neck -0.5, right FA 1/3 -2.6, mid -3.0, distal -2.4, dexa scan [facility] 08/18/21 LT femur neck -0.8, right femur neck -0.5, RT FA 1/3 -2.2, mid 2.8, distal -2.4 Fracture history: L3 kyphoplasty 06/2019, rt kneecap 2014, pelvis fracture 2021 Calcium intake: calcium 600+D3 800 BID, cheese, yogurt daily. Vitamin D intake: calcium +D3, 2 vitamin d 1000 IU daily , No significant sun exposure. Bisphosphonate therapy: Prolia 10/18/2019, 04/29/2020, 10/28/20, Reclast 05/23/2021 Notes she had a reclast infusion about 1 year ago Notes she is on a new medication Zepbound and she is having bowel issues. Notes she takes zinc once in a while. Denies jaw/thigh pain. Objective Ortho Exam No jaw or thigh pain to palpation Assessment/Plan Encounter Diagnoses: ICD-10-CM 1. Age-related osteoporosis without current pathological fracture (CMS/HCC) M81.0 Discussion of options, she notes she wants to continue with the reclast, will order calcium.cr/bun, if this is within normal limits [facility]. Will reorder dexa scan after 08/19/2023 to be done at [facility]. Will send to insurance to get approved also. F/U in 2 years depending on the dexa scan she may need relcast yearly vs every 2 years documented in this encounter [facility] Evaluation note Diagnosis Age-related osteoporosis without current pathological fracture (CMS/HCC)- Primary documented in this encounter [facility]* Diagnosis Senile osteoporosis- Primary [facility] Diagnosis Age-related osteoporosis without current pathological fracture (CMS/HCC)- Primary documented in this encounter [facility]* Diagnosis Class 1 obesity due to excess calories with serious comorbidity and body mass index (BMI) of 30.0 to 30.9 in adult documented in this encounter [facility]* Diagnosis Senile osteoporosis- Primary [facility] Diagnosis Vertigo- Primary Dizziness and giddiness Nasal congestion Other diseases of nasal cavity and sinuses Otitis media with effusion, left documented in this encounter [facility] note* Diagnosis Slow transit constipation- Primary Encounter for screening for malignant neoplasm of colon History of colon polyps Class 1 obesity without serious comorbidity with body mass index (BMI) of 32.0 to 32.9 in adult, unspecified obesity type [facility] Diagnosis History of colonoscopy with polypectomy- Primary Other postprocedural status documented in this encounter [facility]ructionsNot on filedocumented in this encounterPro[facility] System[facility]ructionsNot on filedocumented in this encounterProMediPro[facility] SystemInstructionsNot on filedocumented in this encounterProOhiohealth [facility] Summary Purpose Family History No Family History Records FoundNo Family History Records FoundNo Family History Records FoundNo Family History Records FoundNo Family History Records Found Advance Directives No Advanced Directives Records FoundNo Advanced Directives Records FoundNo Advanced Directives Records FoundNo Advanced Directives Records FoundNo Advanced Directives Records Found Hospital Course Note [facility] SURGERY Clinical Discharge Summary PERSON INFORMATION Name DANYEL PHAM Age 63 Years 1955 Sex FEMALE Language Mexican PCP NINA WRIGHT Marital Status Med Service Ambulatory Surgery Acct# Arrival 05/22/2019 10:16:00 Visit Reason SURGERY - KYPHOPLASTY L3 Acuity LOS 006 05:46 Address: [address] [place] [address] Comment: PROVIDER INFORMATION VITALS INFORMATION Vital Sign Triage Latest Temp Oral Temp Temporal Temp Intravascular Temp Axillary Temp Rectal 02 Sat 100 % 98 % Respiratory Rate Peripheral Pulse Rate Apical Heart Rate Blood Pressure / 64 mmHg / 77 mmHg Comment: MEDICAL INFORMATION Allergy Info: No known allergies Prescriptions Given: acetaminophen-oxycodone (Percocet 5/325 oral tablet) 2 tab(s) Oral Every 6 hours as needed for pain. albuterol (ProAir HFA 90 mcg/inh inhalation aerosol) 2 puff(s) Inhalation Every 4 hours as needed for wheezing. aspirin (aspirin 81 mg oral delayed release tablet) 1 ta (more content not included)... Additional Source Comments INFORMATION SOURCE (unrecogn ized section and content) DATE CREATED AUTHOR 05/31/2019 [facility] DATE CREATED AUTHOR AUTHOR'S ORGANIZ ATION 05/07/2022 [facility] dicin Specialist DATE CREATED AUTHOR AUTHOR'S ORGANIZ ATION 06/01/2023 [facility] DATE CREATED AUTHOR AUTHOR'S ORGANIZ ATION 10/08/2023 [facility] DATE CREATED AUTHOR AUTHOR'S ORGANIZ ATION 02/15/2024 [facility] dical Specialists [facility] Care Teams (unrecognized sec tion and content) Embedder Relationship Specialty Start Date End Date Nina Wright MD [address] [place] [address] PCP - General Family Medicine 10/06/22 Lisbet Suh NP [address] [place] [address] PCP - Medical Tererro Commercial 09/10/22 Lisbet Suh NP [address] [place] [address] Nurse Practitioner Family Medicine 10/06/22 Embedder Relationship Specialty Start Date End Date Nina Wright MD [address] [place] [address] PCP - General 05/27/12 Embedder Relationship Specialty Start Date End Date Nina Wright MD [address] [place] [address] PCP - General Family Medicine 10/06/22 Lisbet Suh NP [address] [place] [address] PCP - Medical Tererro Commercial 09/10/22 Lisbet Suh NP [address] [place] [address] Nurse Practitioner Family Medicine 10/06/22 Embedder Relationship Specialty Start Date End Date Nina Wright MD [address] [place] [address] PCP - General Family Medicine 10/06/22 Lisbet Suh NP [address] [place] [address] PCP - Medical Tererro Commercial 09/10/22 Lisbet Suh NP [address] [place] [address] Nurse Practitioner Family Medicine 10/06/22 Embedder Relationship Specialty Start Date End Date Nina Wright MD [address] [place] [address] PCP - General 05/27/12 Embedder Relationship Specialty Start Date End Date Nina Wright MD [address] [place] [address] PCP - General 05/27/12 Embedder Relationship Specialty Start Date End Date Nina Wright MD [address] [place] [address] PCP - General Family Medicine 10/06/22 Lisbet Suh NP [address] [place] [address] PCP - [employer] 11/11/23 Lisbet Suh NP [address] [place] [address] Nurse Practitioner Family Medicine 10/06/22 Embedder Relationship Specialty Start Date End Date Nina Wright MD [address] [place] [address] PCP - General Family Medicine 10/06/22 Lisbet Suh NP [address] [place] [address] PCP - [employer] 11/11/23 Lisbet Suh NP [address] [place] [address] Nurse Practitioner Family Medicine 10/06/22 Embedder Relationship Specialty Start Date End Date Nina Wright MD [address] [place] [address] PCP - General Family Medicine 10/06/22 Lisbet Suh NP [address] [place] [address] PCP - [employer] 11/11/23 Lisbet Suh NP [address] [place] [address] Nurse Practitioner Family Medicine 10/06/22 Embedder Relationship Specialty Start Date End Date Nina Wright MD [address] [place] [address] PCP - General Family Medicine 10/06/22 Lisbet Suh NP [address] [place] [address] PCP - [employer] 11/11/23 Lisbet Suh NP [address] [place] [address] Nurse Practitioner Family Medicine 10/06/22 Embedder Relationship Specialty Start Date End Date Nina Wright MD [address] [place] [address] PCP - General Family Medicine 10/06/22 Lisbet Suh NP [address] [place] [address] PCP - [employer] 11/11/23 Lisbet Suh NP [address] [place] [address] Nurse Practitioner Family Medicine 10/06/22 Embedder Relationship Specialty Start Date End Date Nina Wright MD [address] [place] [address] PCP - General Family Medicine 10/06/22 Lisbet Suh NP [address] [place] [address] PCP - [employer] 11/11/23 Lisbet Suh NP [address] [place] [address] Nurse Practitioner Family Medicine 10/06/22 Embedder Relationship Specialty Start Date End Date Nina Wright MD [address] [place] [address] PCP - General Family Medicine 10/06/22 Lisbet Suh NP [address] [place] [address] PCP - [employer] 11/11/23 Lisbet Suh NP [address] [place] [address] Nurse Practitioner Family Medicine 10/06/22 Embedder Relationship Specialty Start Date End Date Nina Wright MD [address] [place], [place] [id number] PCP - General Family Medicine 10/06/22 Lisbet Suh NP [address] [place] [address] PCP - [employer] 11/11/23 Lisbet Suh NP [address] [place], [place] [address] Nurse Practitioner Family Medicine 10/06/22 Reason for Visit (unrecogniz ed section and content) Reason Onset Date Comments Med Refill 05/20/2023 Reason Comments Outpatient Infusion Reclast Specialty Diagnoses / Procedures Referred By Contac t Referred To Contact Diagnoses Senile osteoporosis Procedures GA ZOLEDRONIC ACID 1MG GA INJECTION,THERAP/PROPH/SILAS GNOST, IV PUSH, INITIAL DRUG Apling, Nishi Watts, REPORTS ANALYST-[employer] SALES REPRESENTATIVE [address] [facility] [address] [place] [address] Pfo Med Onc [address] [place] [address] Referral ID Status Reason Start Date Expiration Date Visits Re quested Visits Authorized [id number] Closed 05/19/2021 05/19/2022 1 1 Reason Comments Dizziness Started Wednesday, Reason Comments Bloated Reason Comments Colonoscopy Pt presents today fo r a colonoscopy consult. Pt denies/admits to: has having a colonoscopy before. Last colonoscopy was 3 years and she has had polyps on several of her colonoscopies. Pt admits to abdominal pain. Pt denies rectal bleeding. Pt admits to changes in bowel movements. Pt denies a family history of colon cancer that they know of. Pt denies any concern today. Specialty Diagnoses / Procedures Referred By Contac t Referred To Contact Infusion Therapy Diagnoses Age-related osteoporosis without current pathological fracture (CMS/HCC) Procedures GA ZOLEDRONIC ACID 1MG Nishi Bassett NP [address] [place] [address] Phone: tel: fax: [facility] fax: Referral ID Status Reason Start Date Expiration Date Visits Re quested Visits Authorized [id number] Closed 2023 03/26/2024 1 1 FOR RECORDS PERTAINING TO PATIENTS WHO ARE OR HAVE BEEN ENROLLED IN A CHEMICAL DEPENDENCY/SUBSTANCEABUSE PROGRAM, SOME INFORMATION MAY BE OMITTED. This clinical summary was aggregated from multiple sources. Caution should be exercised in using it in the provision of clinical care. This summary normalizes information from multiple sources, and as a consequence, information in this document may materially change the coding, format and clinical context of patient data. In addition, data may be omitted in some cases. CLINICAL DECISIONS SHOULD BE BASED ON THE PRIMARY CLINICAL RECORDS. [facility] [employer] provides no warranty or guarantee of the accuracy or completeness of information in this document.
== END 2024-03-02 12:50 | disposition home or self-care (01) ==
LOC: PST 12:50
PROVIDERS: Family Provider Family Medicine; PCP Family Medicine; Visit Provider Surgery
DX: Z01.818 Encounter for other preprocedural examination (principal); Z12.11 Encounter for screening for malignant neoplasm of colon; Z86.0100 Personal history of colon polyps, unspecified

== ENCOUNTER 2024-03-14 08:04 | Day surgery (SDC) | payer MEDICARE, SELFPAY ==
[2024-03-14 08:10] VITALS: BP 129/65; PULSE 70; TEMP 35.5; O2SAT 99; BMI 32.3
--- OUTSIDE RECORDS SUMMARY | 2024-03-14 08:19 | XMS_ITS | CCD ---
Author Organization [facility] Care Team Providers Care Cross Tie Maker Name Role Phone Celena HARDY, Nina Primary Care Provider Angeli PRODUCTION CONTROL ANALYST, Lisbet Unavailable Angeli PRODUCTION CONTROL ANALYST, Lisbet Unavailable Nina Wright MD Primary Care Provider [phone] NINA WRIGHT Referring Unavailable NINA WRIGHT Primary Care Unavailable FRANCISCO SEYMOUR Attending Unavailable NINA WRIGHT Referring Unavailable NINA WRIGHT Primary Care Unavailable Angeli PRODUCTION CONTROL ANALYST, Lisbet Unavailable NISHI BASSETT Attending Unavailable CHIDIPBASILIO, LISBET Attending Unavailable CHIDIPFER, LISBET Attending Unavailable CHIDIPBASILIO, LISBET Attending Unavailable NISHI BASSETT Referring Unavailable ANGELI, LISBET Attending Unavailable ANGELI, LISBET Attending Unavailable LISBET SUH Referring Unavailable ELIZABETH LOMELI Attending Unavailab ELIZABETH Slade Referring Unavailab LISBET Decker Attending Unavailable CHIDIPFER, LISBET Referring Unavailable CHIDIPFER, LISBET Attending Unavailable CHIDIPBASILIO, LISBET Attending Unavailable [...] tablet (15 sources) take 1 tablet by abbie th in the morning Multiple Vitamin (multivitamin) tablet Take 1 tablet by mouth in the morning. Active take 1 tablet by mouth in the mo rning Multiple Vitamin (multivitamin) tablet Take 1 tablet by mouth in the morning. 0 Active mv-min/vit C/elderber/herb 124 (AIRBORNE ELDERBERRY ORAL) (3 sources) mv-min/vit C/elderber/herb 124 (AIRBORNE ELDERBERRY ORAL) Take by mouth. 0 Active polyethylene glycol 3350 52212 mg powder for oral solution (2 sources) [...] (COVID-19) RNA MARIELLE+probe Ql (Unsp spec) - [facility] No Panel Informationon 01-23 FLU A - [facility] Healthcare FLU B - [facility] Interpretation and review of laboratory results Normal [facility] BI MAMMOGRAM SCREENING TOMOS YNTHESIS BILATERALon 01-11-2024 [...] Dual Femur bone density obtained with a [employer] whole body system: Region BMD Young-Adult Age-Matched [...] Right Forearm bone density obtained with a [employer] whole body system: Region BMD Young-Adult Age-Matched [...] schedule after 08/19/23 to be done at [facility] in [place], thank you Multiple labson 05-17-2023 [facility] XR FOOT 3+ VIEWS RIGHTon XR FOOT 3+ VIEWS RIGHT EXAM: XR FOOT 3+ VIEWS RIGHT [facility]-[id number] CLINICAL INDICATION: pain TECHNIQUE: AP, lateral, and [...] by Zack Jacobs on 05/07/2022 1201 Normal [facility] SCREENING MAMMOGRAM W/KASIA, BILATERAL*on 08-18-2021 SCREENING MAMMOGRAM [...] VERY IMPORTANT TO YOUR HEALTH. THE CURRENT [place] [employer] AND [employer] GUIDELINES RECOMMENDS ANNUAL MAMMOGRAPHY BEGINNING AT AGE 40 THIS FACILITY USES A REMINDER SYSTEM TO ENSURE ALL PATIENTS RECEIVE REMINDER NOTIFICATIONS AT THE APPROPRIATE TIME BASED ON THE RECOMMENDATIONS OF THIS EXAM. Report reported and signed by Elijah Chin on 08/19/2021 0710 Normal [facility] XR Bone Density (DEXA)on XR Bone Density (DEXA) EXAM: Dual Femur Bone Density FINDINGS: Dual Femur bone density obtained with a [employer] whole body system: Electronic Payment and Services (EPS)AdultA ge-Matched Total(g/cm2)(%)T-Scor e(%)Z-Score Mean0.09265-9.35558.9 Impression: The mean BMD and corresponding T-score [...] Right Forearm bone density obtained with a [employer] whole body system: RegionBMDYC[facility] Health Centerg-AdultA ge-Matched Total(g/cm2)(%)T-Scor e(%)Z-Score Mean0.18663-6.296-0.4 Impression: The mean BMD and corresponding T-score [...] by Elijah Chin on 08/19/2021 0725 Normal [facility] Multiple labsOrdered By: Noelle Cary on 05-22-2021 [facility] Calciumon 05-13-2021 Calcium [Mass/Vol] 9.7 mg/dL Normal 8.6-10.2 [facility] Comment on above: Performed By: #### C STORM CA #### [facility] [address], [place] [id number] Creatinineon 05-13-2021 Creatinine [Mass/Vol] 0.8 mg/dL Normal 0.6-1.4 [facility] Comment on above: Performed By: #### C STROM CA #### [facility] [address] [place], [place] [id number] eGFRAA 93 mL/min/1.73m2 Normal >60 [facility] Comment on above: Performed By: #### C JOHN INMAN #### [facility] [address], [place] [id number] eGFRNAA 76 mL/min/1.73m2 Normal >60 [facility] Specialist Comment on above: Performed By: #### C JOHN INMAN #### [facility] [address], [place] [id number] Multiple labson 05-13-2021 [facility] Lab - AP Resultson 0 Lab - AP Results [id number] .00OTGTIFF Normal [facility] MAGR Intraoperative Recordon 05-26-2019 [facility] Intraoperative Record [facility] Intra-Op Record Summary Primary Physician: Dylan Faith DO Finalized Date/Time: 05/26/19 14:29:02 Pt. Name: DANYEL PHAMO.B./Sex: 1955 FEMALE Med Rec #: [id number] Physician: Dylan Faith DO Financial #: [id number] Pt. Type: D Room/Bed: / Admit/Disch: 05/22/19 [...] Role Performed Surgeon - Primary Anesthesiologist of Physical Aerodynamicist Record Time In 05/22/19 13:35:00 05/22/19 13:35:00 05/22/19 13:35:00 Time Out 05/22/19 14:28:00 05/22/19 14:28:00 05/22/19 14:28:00 Procedure Kyphoplasty(L3) Kyphoplasty(L3) Kyphoplasty(L3) Last Modified By: Randy KIM, Abida Padilla RN, Abida Quinn RN 05/22/19 14:53:17 05/22/19 14:53:17 05/22/19 14:53:17 Entry 4 Entry 5 Entry 6 Case Attendee Genny Torres Liberty G Smith, Melanie Role Performed Hand I Thermal Cutter Scrub Personnel Gambreler Helper Time In 05/22/19 13:35:00 05/22/19 13:35:00 05/22/19 13:35:00 Time Out 05/22/19 14:28:00 05/22/19 14:28:00 05/22/19 14:28:00 Procedure Kyphoplasty(L3) Kyphoplasty(L3) Kyphoplasty(L3) Last Modified By: Randy KIM, Abida Padilla RN, Abida Quinn RN 05/22/19 14:53:17 05/22/19 14:53:17 05/22/19 14:53:17 Entry 7 Case Attendee Dylan Diamond Role Performed Gambreler Helper Time In 05/22/19 13:35:00 Time Out 05/22/19 [...] Implanted/Explanted Dylan Faith Date/Time By: Bennett ORANTES Onsite Health Coach [employer] Lot Number [id number] Expiration Date 12/10/21 Implant Usage Data Site Back Quantity 1 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 See Report Normal [facility] Comment on above: Order Comment: L3 VE RTEBRE BONE BIOPSY Performed By: #### 2 [id number] ####[facility] (DEFAULT)[address] [place] [address] Coding Summaryon 05-25-2019 Coding Summary CODING DATE: 05/25/2019 [facility] STATUS: Home PAYOR: Commercial Insurance APC DESCRIPTION [...] Radha Nassar Date Saved: 05/25/2019 08:[address] [facility] History and Physicalon 05-24 History and Physical [id number] .00[facility] Provider Orderson 05-24-2019 Provider Orders [id number] .00[facility] Consent Formson 05-23-2019 Consent Forms [id number]#[address] [place] [address] Discharge Instructionson Discharge Instructions [id number] [place] [address] Medication Managementon 05-13 Medication Management [id number] .00[facility] Anesthesia Noteon 05-22-2019 Anesthesia Note Patient: DANYEL [...] on: 05/22/2019 14:38 EST] Charles Veronica MD [facility] Anesthesia Note Patient: DANYEL PHAM Age: 63 [...] 500 mg = 1 tab(s), PO, BID [place]-3 oral capsule 1 tab(s), PO, Daily ProAir HFA 90 mcg/inh inhalation aerosol 2 puff(s), PRN, INH, q4hr Singulair 10 mg oral tablet 10 mg = 1 tab(s), PO, qPM Problem list (past medical history): All Problems Back pain / SNOMED CT 711531926 / Confirmed Fracture / SNOMED CT 802914289 / Confirmed Seasonal allergies / SNOMED CT 1428942694 / Confirmed Histories Family History: No family history items have been selected or recorded. Procedure history: Cholecystectomy (18890523) in 2007 at 52 Years. Comments: 05/17/2019 13:44 Abida Del Castillo RN Age 52 Hysterectomy (676040369) in 2005 at 50 Years. Comments: 05/17/2019 13:43 Abida Del Castillo RN age 50 Appendectomy (843368706) in 1987 at 32 Years. Sinus (7887549730) in 1968 at 13 Years. Comments: 05/17/2019 13:44 Abida Del Castillo RN Sinuses Surgery Colonoscopy (158657444). Social History Electronic Cigarette/Vaping Assessment Electronic Cigarette [...] Oriented. Review / Management Laboratory Results Plan [place] [employer]esthesiologists#( A) physical status classification: Class II. Anesthetic Preoperative Plan Anesthesia: Monitored anesthesia care. Anesthetic plan, risks, benefits, and alternatives discussed with the patient and/or family. Patient verbalized understanding. Informed consent was given. Anesthetic technique: Monitored anesthesia care. [Electronically Signed on: 05/22/2019 13:22 EST] Charles Veronica MD [Verified on: 05/22/2019 13:22 EST] Charles Veronica MD [facility] Inpatient Patient Summaryon 05-22-2019 [place] [address] Patient Discharge Instructions Name: DANYEL PHAM Michael : 1955 Patient Address: [address] [place] [address] Primary Care Provider: Name: NINA WRIGHT After you are discharged if you find you have any questions, please, call [phone] ext [phone] to speak to a nurse. Discharge Diagnosis: [...] problems; contact the [facility] 02/11 Crisis Hotline -Text 4HSRI tq 756058. If you received any narcotics, sedation, or [...] business decisions or sign any legal documents [facility] would like to thank you for allowing us to assist you with your healthcare needs. The following includes patient education materials and information regarding your injury/illness. DANYEL PHAM has been given the following list of follow-up instructions, prescriptions, and patient education materials: Follow-up Instructions With: Address: When: NISHI BASSETT [address] [facility], [facility] [address] [place], [place] [id number] Business (1) In 9 days 05/31/2019 With: Address: When: NINA WRIGHT [address] [place] [phone] Business (1) Medications During the course of [...] times a day. omega-3 polyunsaturated fatty acids ([place]-3 oral capsule) 1 tab(s) Oral every day. [...] times a day. omega-3 polyunsaturated fatty acids ([place]-3 oral capsule) 1 tab(s) Oral every day. [...] or concerns, please call the office at [phone] -Follow up as scheduled Viruses or Bacteria [...] for Disease Control and Prevention December 2013 [facility]2019 [facility] [place] [place] [facility] [place] Record Summary Primary Physician: Dylan Faith DO Finalized Date/Time: 05/22/19 15:46:38 Pt. Name: VERODANYEL./Sex: 1955 FEMALE Med Rec #: [id number] Physician: Dylan Faith DO Financial #: [id number] Pt. Type: D Room/Bed: / Admit/Disch: 05/22/19 [...] Signed By: Sherri Parker RN 05/22/19 15:46 [facility]ordon 0 05-22-2019 [facility] Preoperative Record [facility] Pre-Op Record Summary Primary Physician: Dylan Faith DO Finalized Date/Time: 05/22/19 15:45:27 Pt. Name: DANYEL PHAM Michael Haney./Sex: 1955 FEMALE Med Rec #: [id number] Physician: Dylan Faith DO Financial #: [id number] Pt. Type: D Room/Bed: / Admit/Disch: 05/22/19 [...] Signed By: Sherri Parker RN 05/22/19 15:[address] [facility] Operative Report - Surgeon/P mustapha 05-22-2019 Operative [...] on: 05/22/2019 14:47 EST] Dylan Faith DO [facility] Patient Handouton 05-22-[address] MENDOZA [...] or concerns, please call the office at [phone] -Follow up as scheduled [facility] XR Fluoro Surgeryon 05-22-19 20 XR Fluoro [...] MD 05/22/19 4:28 pm Technologist: PREETI NESBITT [facility] XR Spine Lumbosacral 2 or 3 Viewson [...] MD 05/22/19 4:28 pm Technologist: PREETI NESBITT [facility] Progress Note - Nurseon Progress Note - Nurse Spoke with pt and [facility] and NPO after MN, she verbalizes understanding. [Electronically Signed on: 05/19/2019 09:17 EST] Andree Alonso RN [Verified on: 05/19/2019 09:17 EST] Andree Alonso RN [facility] Coding Summaryon 05-18-2019 Coding Summary CODING DATE: 05/18/2019 [facility] STATUS: Home PAYOR: Commercial Insurance APC DESCRIPTION [...] Hamilton Date Saved: 05/18/2019 11:13 am Normal [facility] .Auto Diff 1on 05-17-2019 Auto Cache % 6 % Normal 1-12 [facility] Comment on above: Performed By: #### 7 [id number], [id number] #### [facility] (DEFAULT) [address] [place] [address] Baso Abs# 0.0 x10 Normal 0.0-0.2 [facility] Comment on above: Performed By: #### 7 [id number], [id number] #### [facility] (DEFAULT) [address] [place] [address]57 Basophils/100 WBC (Bld) 0.8 % Normal 0.2-2.0 [facility] Comment on above: Performed By: #### 7 [id number], [id number] #### [facility] (DEFAULT) [address] [place] [address] 45494 Eos Abs# 0.1 x10 Normal 0.0-0.4 [facility] Comment on above: Performed By: #### 7 [id number], [id number] #### [facility] (DEFAULT) [address] [place] [address] 38011 Eosinophils/100 WBC (Bld) 2.3 % Normal 0.9-4.0 [facility] Comment on above: Performed By: #### 7 [id number], [id number] #### [facility] (DEFAULT) [address] [place] [address] 94182 Lymphocytes (Bld) [#/Vol] 1.2 x10 Low 1.3-2.9 [facility] Comment on above: Performed By: #### 7 [id number], [id number] #### [facility] (DEFAULT) [address] [place] [address] 95499 Lymphocytes/100 WBC (Bld) 22 % Normal 14-48 [facility] Comment on above: Performed By: #### 7 [id number], [id number] #### [facility] (DEFAULT) [address] [place] [address] 58968 Cache Abs# 0.3 x10 Normal 0.0-0.8 [facility] Comment on above: Performed By: #### 7 [id number], [id number] #### [facility] (DEFAULT) [address] [place] [address] Neut Abs# 3.6 x10 Normal 1.5-9.2 [facility] Comment on above: Performed By: #### 7 [id number], [id number] #### [facility] (DEFAULT) [address] [place] [address] Neutrophils/100 WBC (Bld) 69 % Normal 44-88 [facility] Comment on above: Performed By: #### 7 [id number], [id number] #### [facility] (DEFAULT) [address] [place] [address] CBC w/ Auto Diffon 0 Erythrocyte distribution width (RBC) [Ratio] 12.8 % Normal 11.5-15.0 [facility] Comment on above: Performed By: #### 7 [id number], [id number] #### [facility] ([facility]) [address] [place] [address] Hematocrit (Bld) [Volume fraction] 39.7 % Normal 33.7-40.4 [facility] Comment on above: Performed By: #### 7 [id number], [id number] #### [facility] (DEFAULT) [address] [place] [address] Hemoglobin (Bld) [Mass/Vol] 13.1 g/dL Normal 11.3-15.9 [facility] Comment on above: Performed By: #### 7 [id number], [id number] #### [facility] (DEFAULT) [address] [place] [address] Man Diff? Auto Normal [facility] Comment on above: Performed By: #### 7 [id number], [id number] #### [facility] (DEFAULT) [address] [place] [address] MCH (RBC) [Entitic mass] 33 pg Normal 24-34 [facility] Comment on above: Performed By: #### 7 [id number], [id number] #### [facility] (DEFAULT) [address] [place] [address]25 MCHC (RBC) [Mass/Vol] 33 g/dL Normal 26-37 [facility] Comment on above: Performed By: #### 7 [id number], [id number] #### [facility] (DEFAULT) [address] [place] [address]96 MCV (RBC) [Entitic vol] 100 fL Normal 81-100 [facility] Comment on above: Performed By: #### 7 [id number], [id number] #### [facility] (DEFAULT) [address] [place] [address] Platelet mean volume (Bld) [Entitic vol] 9.8 fL Normal 6.3-10.2 [facility] Comment on above: Performed By: #### 7 [id number], [id number] #### [facility] (DEFAULT) [address] [place] [address] Platelets (Bld) [#/Vol] 353 x10 Normal 138-427 [facility] Comment on above: Performed By: #### 7 [id number], [id number] #### [facility] (DEFAULT) [address] [place] [address] RBC (Bld) [#/Vol] 3.95 x10 Normal 3.70-5.30 [facility] Comment on above: Performed By: #### 7 [id number], [id number] #### [facility] (DEFAULT) [address] [place] [address] WBC (Bld) [#/Vol] 5.2 x10 [facility] Comment on above: Performed By: #### 7 [id number], [id number] #### [facility] (DEFAULT) [address] [place] [address] Vital Signs Date Time Vital Sign Value Performing Clinician Facility 02-14-2024 13:46-0500 Body height 154.9 cm Kay [employer] Work Phone: [facility] 02-14-2024 13:46-0500 Body mass index (BMI) [Ratio] 32.88 kg/m2 Kay Paredes DO Work Phone: [facility] 02-14-2024 13:46-0500 Body weight 78.93 kg Kay Paredes DO Work Phone: [facility] 02-14-2024 13:46-0500 Diastolic blood pressure 68 mm[Hg] Kay Paredes DO Work Phone: [facility] 02-14-2024 13:46-0500 Heart rate 85 /min Kay Paredes DO Work Phone: [facility] 02-14-2024 13:46-0500 SaO2% (BldA) [Mass fraction] 94 % Kay Paredes DO Work Phone: [facility] 02-14-2024 13:46-0500 Systolic blood pressure 128 mm[Hg] Kay Paredes DO Work Phone: [facility] 02-03-2024 10:00-0400 Body height 154.9 cm Lisbet Suh PRODUCTION CONTROL ANALYST Work Phone: [facility] 02-03-2024 10:00-0400 Body mass index (BMI) [Ratio] 32.42 kg/m2 Lisbet Suh PRODUCTION CONTROL ANALYST Work Phone: [facility] 02-03-2024 10:00-0400 Body temperature 96.8 [degF] Lisbet Suh PRODUCTION CONTROL ANALYST Work Phone: [facility] 02-03-2024 10:00-0400 Body weight 77.84 kg Lisbet Suh PRODUCTION CONTROL ANALYST Work Phone: [facility] 02-03-2024 10:00-0400 Diastolic blood pressure 78 mm[Hg] Lisbet Suh PRODUCTION CONTROL ANALYST Work Phone: [facility] 02-03-2024 10:00-0400 Heart rate 79 /min Lisbet Suh PRODUCTION CONTROL ANALYST Work Phone: [facility] 02-03-2024 10:00-0400 SaO2% (BldA) [Mass fraction] 98 % Lisbet Suh PRODUCTION CONTROL ANALYST Work Phone: [facility] 02-03-2024 10:00-0400 Systolic blood pressure 126 mm[Hg] Lisbet Suh PRODUCTION CONTROL ANALYST Work Phone: [facility] 01-24-2024 16:31-0400 Body height 154.9 cm Lisbet Suh PRODUCTION CONTROL ANALYST Work Phone: [facility] 01-24-2024 16:31-0400 Body mass index (BMI) [Ratio] 32.42 kg/m2 Lisbet Suh PRODUCTION CONTROL ANALYST Work Phone: [facility] 01-24-2024 16:31-0400 Body weight 77.84 kg Lisbet Suh PRODUCTION CONTROL ANALYST Work Phone: [facility] 01-24-2024 16:31-0400 Diastolic blood pressure 80 mm[Hg] Lisbet Suh PRODUCTION CONTROL ANALYST Work Phone: [facility] 01-24-2024 16:31-0400 Heart rate 83 /min Lisbet Suh PRODUCTION CONTROL ANALYST Work Phone: [facility] 01-24-2024 16:31-0400 SaO2% (BldA) [Mass fraction] 98 % Lisbet Suh PRODUCTION CONTROL ANALYST Work Phone: [facility] 01-24-2024 16:31-0400 Systolic blood pressure 130 mm[Hg] Lisbet Suh PRODUCTION CONTROL ANALYST Work Phone: [facility] 05-31-2023 09:56-0500 Body height 154.9 cm Pfo 3 [facility] 05-31-2023 09:56-0500 Body mass index (BMI) [Ratio] 29.49 kg/m2 Pfo 3 [facility] 05-31-2023 09:56-0500 Body temperature 97.59 [degF] Pfo 3 [facility] 05-31-2023 09:56-0500 Body weight 70.76 kg Pfo 3 [facility] 05-31-2023 09:56-0500 Diastolic blood pressure 60 mm[Hg] Pfo 3 [facility] 02-19-2024 09:56-0500 Heart rate 79 /min Pfo 3 [facility] 05-31-2023 09:56-0500 Respiratory rate 16 /[facility] 05-31-2023 09:56-0500 SaO2% (BldA) [Mass fraction] 100 % [facility]-31-2023 09:56-0500 Systolic blood pressure 118 mm[Hg] Pfo 3 [facility] [employer] [facility] Encounters Encounter Date Encounter Type Care [...] 02-03-2024 End: 02-03-2024 Bamboo flowsheet Lisbet Suh PRODUCTION CONTROL ANALYST Work Phone: [facility] Start: 02-03-2024 End: 02-03-2024 Bamboo flowsheet Lisbet Suh PRODUCTION CONTROL ANALYST Work Phone: [facility] Start: 02-03-2024 End: 02-03-2024 Office outpatient visit 25 minutes Lisbet Suh PRODUCTION CONTROL ANALYST Work Phone: [facility] Comment on above: Slow transit constip ation (Primary Dx); Encounter for screening for malignant neoplasm of colon; History of colon polyps; Class 1 obesity without serious comorbidity with body mass index (BMI) of 32.0 to 32.9 in adult, unspecified obesity type Start: 02-03-2024 End: 02-03-2024 ambulatory LISBET SUH Not Available Start: 01-31-2024 End: 01-31-2024 Telephone encounter Lisbet Suh PRODUCTION CONTROL ANALYST Work Phone: [facility] Start: 01-26-2024 End: 01-26-2024 Telephone encounter Lisbet Suh PRODUCTION CONTROL ANALYST Work Phone: [facility] Start: 01-24-2024 End: 01-24-2024 Office outpatient visit 15 minutes Lisbet Suh PRODUCTION CONTROL ANALYST Work Phone: [facility] Comment on above: Vertigo (Primary Dx) ; Nasal congestion; Otitis media with effusion, left Start: 01-24-2024 End: 01-24-2024 ambulatory LISBET KAMPFER Not Available Start: 01-24-2024 End: 01-24-2024 Bamboo flowsheet Lisbet Suh PRODUCTION CONTROL ANALYST Work Phone: [facility] Start: 01-24-2024 End: 01-24-2024 Bamboo flowsheet Lisbet Suh PRODUCTION CONTROL ANALYST Work Phone: [facility] Start: 01-11-2024 End: 01-11-2024 ambulatory LISBET KAMPFER Not Available Start: 12-22-2023 End: 12-22-2023 ambulatory LISBET KAMPFER Not Available Start: 10-22-2023 End: 10-22-2023 ambulatory ELIZABETH A ARMANI Not Available Start: 10-07-2023 End: 10-07-2023 ambulatory [facility] Start: 10-06-2023 End: 10-06-2023 ambulatory LISBET KAMPFER Not Available Start: 09-23-2023 End: 09-23-2023 ambulatory NISHI B APLING Not Available Start: 09-20-2023 End: 09-20-2023 ambulatory LISBET KAMPFER Not Available Start: 07-26-2023 End: 07-26-2023 ambulatory LISBET KAMPFER Not Available Start: 05-31-2023 End: 05-31-2023 ambulatory [facility] Infusion Chair 3 Sarah Gay [facility] Comment on above: Senile osteoporosis (Primary Dx) Start: 05-19-2023 Orders Only Elizabeth Bejessie [facility] Work Phone: Sarah Givens [facility] Comment on above: Senile osteoporosis (Primary Dx) Start: 05-18-2023 Telephone encounter Nishi coelho PRODUCTION CONTROL ANALYST Work Phone: [facility] Start: 05-17-2023 End: 05-17-2023 ambulatory NISHI BASSETT Not Available Start: 05-17-2023 End: 05-17-2023 Office outpatient visit 15 minutes Nishi Bassett PRODUCTION CONTROL ANALYST Work Phone: [facility] Comment on above: Age-related osteopor osis without current pathological fracture (CMS/HCC) (Primary Dx) Start: 05-10-2023 Refill Lisbet Suh PRODUCTION CONTROL ANALYST Work Phone: [facility] Comment on above: Class 1 obesity due to excess calories with serious comorbidity and body mass index (BMI) of 30.0 to 30.9 in adult Start: 03-17-2023 End: 03-17-2023 ambulatory LISBET SUH Not Available Start: 03-12-2023 End: 03-12-2023 ambulatory LISBET SUH Not Available Start: 05-22-2021 Chart abstracting Mer Givens [facility] - Medical On[facility] Procedures Date Procedure Procedure Detail Performing Clinician Start: 01-24-2024 STATUS COVID-19/FLU Regina Suh PRODUCTION CONTROL ANALYST Work Phone: Start: 01-11-2024 Mammography Lisbet medel PRODUCTION CONTROL ANALYST Work Phone: Start: 05-17-2023 MULTIPLE LABS Not In Sy stem Ref Prov Start: 11-04-2022 Mammography Nishi faith PRODUCTION CONTROL ANALYST Work Phone: Start: 08-18-2022 H/O: hysterectomy History of hystere ctomy Nishi Bassett PRODUCTION CONTROL ANALYST Work Phone: Start: 05-13-2021 MULTIPLE LABS Not In Sy stem Ref Prov Start: 02-17-2021 Colonoscopy Nishi faith PRODUCTION CONTROL ANALYST Work Phone: Plan of Treatment Date Care Activity Detail Author Start: 02-17-2031 Screening for malignant neoplasm of colon [facility] Start: 07-04-2028 DTaP,Tdap and Td Vaccines (4 - Td or Tdap) DTaP,Tdap and Td Vaccines (4 - Td or Tdap) [facility] Start: 09-26-2025 End: 09-26-2025 Patient encounter procedure 09/26/2025 9:30 AM EDT Office Visit [facility] [address] [place] [address] Nishi Bassett NP [address] [place] [address] [facility] Start: 01-10-2025 Screening for malignant neoplasm of breast Mammogram [facility] Start: 03-25-2024 Adult BMI Screening Adult BMI Screen ing [facility] Start: 03-25-2024 Tobacco Screening Tobacco Screening [facility] Start: 03-12-2024 Medicare Annual Wellness (AWV) Medicare Annual Wellness (AWV) [facility] Start: 02-14-2024 End: 02-14-2024 Patient encounter procedure 02/14/2024 1:45 PM EST Office Visit [facility] [address] [place] [phone] Kay Paredes DO [address] [place] [address] Arrived [facility] Comment on above: Arrived Start: 02-03-2024 End: 02-03-2024 Patient encounter procedure 02/03/2024 10:00 AM EDT Office Visit [facility] [address] [place] [phone] Lisbet Suh NP [address] [place] [address] Arrived [facility] Comment on above: Arrived Start: 01-24-2024 End: 01-24-2024 Patient encounter procedure 01/24/2024 4:30 PM EDT Office Visit [facility] [address] [facility] [place] [phone] Lisbet Suh NP [address] [facility] [place] [address] Arrived [facility] Comment on above: Arrived Start: 12-12-2023 Influenza vaccination Influenza Vacc ine (#1) [facility] Start: 11-05-2023 Screening for malignant neoplasm of breast Mammogram [facility] Start: 10-07-2023 End: 10-07-2023 Patient encounter procedure 10/07/2023 9:50 AM EDT Office Visit [facility] [address] [place] [address] Francisco Seymour MD [address], [address] [address] [facility] Start: 2023 End: 2023 Patient encounter procedure 2023 1:00 PM EDT Office Visit [facility] [address] [place] [phone] Lisbet Suh NP [address] [place] [address] [facility] Start: 08-15-2023 End: 05-17-2024 DXA Skeletal system Views for bone density DEXA bone density Imaging Routine Age-related osteoporosis without current pathological fracture (CMS/HCC) Expected: 08/15/2023, Expires: 05/17/2024 [facility] Comment on above: Expected: 08/15/2023 , Expires: 05/17/2024 Start: 05-17-2023 End: 05-17-2024 Calcium [Mass/volume] in Serum or Plasma Calcium Lab Routine Age-related osteoporosis without current pathological fracture (CMS/HCC) Expected: 05/17/2023 (Approximate), Expires: 05/17/2024 [facility] Work Phone: Comment on above: Expected: 05/17/2023 (Approximate), Expires: 05/17/2024 Start: 05-17-2023 End: 05-17-2024 Creatinine [Mass/volume] in Serum or Plasma Creatinine, Serum Lab Routine Age-related osteoporosis without current pathological fracture (CMS/HCC) Expected: 05/17/2023 (Approximate), Expires: 05/17/2024 [facility] Comment on above: Expected: 05/17/2023 (Approximate), Expires: 05/17/2024 Start: 05-17-2023 End: 05-17-2024 Urea nitrogen [Mass/volume] in Serum or Plasma BUN Lab Routine Age-related osteoporosis without current pathological fracture (CMS/HCC) Expected: 05/17/2023 (Approximate), Expires: 05/17/2024 [facility] Comment on above: Expected: 05/17/2023 (Approximate), Expires: 05/17/2024 Start: 12-11-2022 COVID-19 Vaccine () COVID-19 Vaccine () [facility] Start: 09-27-2020 Fall Risk Screening Fall Risk Screen ing [facility] Start: 09-27-2000 Screening for malignant neoplasm of colon Colon Cancer Screening 3 Year Cologuard [facility] Start: 09-27-1973 Adult BMI Follow Up Plan Adult BMI Follow Up Plan [facility] Start: 1967 Depression Screening Depression Scre [facility] Start: 1955 Screening for malignant neoplasm of colon [facility] Immunizations Immunization Date Immunization Notes Care Provider Rickie lassiter 03-12-2023 influenza, high dose seasonal, preservative-free Nishi Bassett PRODUCTION CONTROL ANALYST Work Phone: [facility] 03-12-2023 influenza virus vacc ine, unspecified formulation Lisbet Suh PRODUCTION CONTROL ANALYST Work Phone: [facility] 01-26-2022 Influenza, High-dose Seasonal, Quadrivalent, Preservative Free Lisbet Suh PRODUCTION CONTROL ANALYST Work Phone: [facility] 01-26-2022 influenza, seasonal, injectable Nishi Bassett PRODUCTION CONTROL ANALYST Work Phone: [facility] 01-26-2022 Moderna SARS-CoV-2 Vaccination Nishi Bassett PRODUCTION CONTROL ANALYST Work Phone: [facility] 12-20-2021 zoster vaccine recombinant M tracy Bassett PRODUCTION CONTROL ANALYST Work Phone: [facility] 10-17-2021 zoster vaccine recombinant M tracy Bassett PRODUCTION CONTROL ANALYST Work Phone: [facility] 03-14-2021 Moderna SARS-CoV-2 Vaccination Nishi Bassett PRODUCTION CONTROL ANALYST Work Phone: [facility] 02-08-2021 Influenza, High-dose Seasonal, Quadrivalent, Preservative Free Lisbet Kampfer PRODUCTION CONTROL ANALYST Work Phone: [facility] 02-08-2021 influenza, seasonal, injectable Nishi Bassett PRODUCTION CONTROL ANALYST Work Phone: [facility] 02-08-2021 pneumococcal polysaccharide vaccine, 23 valent Nishi Bassett PRODUCTION CONTROL ANALYST Work Phone: [facility] 07-05-2020 Moderna SARS-CoV-2 Vaccination Nishi Bassett PRODUCTION CONTROL ANALYST Work Phone: [facility] 06-05-2020 Moderna SARS-CoV-2 Vaccination Nisih Bassett PRODUCTION CONTROL ANALYST Work Phone: [facility] 01-08-2020 influenza, injectabl e, quadrivalent, preservative free Lisbet Kampfer PRODUCTION CONTROL ANALYST Work Phone: [facility] 05-10-2019 influenza, injectabl e, quadrivalent, preservative free Lisbet Kampfer PRODUCTION CONTROL ANALYST Work Phone: [facility] 05-10-2019 influenza, seasonal, injectable Nishi Bassett PRODUCTION CONTROL ANALYST Work Phone: [facility] 07-04-2018 tetanus toxoid, redu adrian diphtheria toxoid, and acellular pertussis vaccine, adsorbed Nishi Bassett PRODUCTION CONTROL ANALYST Work Phone: [facility] 01-21-2018 influenza, injectabl e, quadrivalent, contains preservative Lisbet Kampfer PRODUCTION CONTROL ANALYST Work Phone: [facility] 01-21-2018 influenza, seasonal, injectable Nishi Bassett PRODUCTION CONTROL ANALYST Work Phone: [facility] 03-12-2017 influenza, injectabl e, quadrivalent, contains preservative Lisbet Kampfer PRODUCTION CONTROL ANALYST Work Phone: [facility] 03-12-2017 influenza, seasonal, injectable Nishi Bassett PRODUCTION CONTROL ANALYST Work Phone: [facility] 08-03-2016 tetanus toxoid, redu adrian diphtheria toxoid, and acellular pertussis vaccine, adsorbed Nishi Bassett PRODUCTION CONTROL ANALYST Work Phone: [facility] 04-30-2016 pneumococcal conjuga te vaccine, 13 valent Nishi Bassett PRODUCTION CONTROL ANALYST Work Phone: [facility] 01-16-2016 zoster vaccine, live Nishi pepper PRODUCTION CONTROL ANALYST Work Phone: [facility] 01-13-2016 influenza, injectabl e, quadrivalent, preservative free Lisbet Kampfer PRODUCTION CONTROL ANALYST Work Phone: [facility] 12-10-2015 influenza, injectabl e, quadrivalent, preservative free Lisbet Kampfer PRODUCTION CONTROL ANALYST Work Phone: [facility] 01-25-2015 influenza virus vacc ine, whole virus Lisbet Kampfer PRODUCTION CONTROL ANALYST Work Phone: [facility] 02-19-2014 tetanus toxoid, redu adrian diphtheria toxoid, and acellular pertussis vaccine, adsorbed Nishi Bassett PRODUCTION CONTROL ANALYST Work Phone: [facility] 01-10-2014 influenza virus vacc ine, whole virus Lisbet Kampfer PRODUCTION CONTROL ANALYST Work Phone: [facility] 01-24-2013 influenza, seasonal, injectable, preservative free Lisbet Kampfer PRODUCTION CONTROL ANALYST Work Phone: [facility] 01-02-2013 pneumococcal polysaccharide vaccine, 23 valent Nishi Bassett PRODUCTION CONTROL ANALYST Work Phone: [facility] Payers Date Payer Category Payer Medicaid [employer] MED[employer]ARE A DVANTAGE [id number] 2023 Medicare MEDICARE [id number] 2023 Medicare [id number] 2023 Medicare [id number] 2015 Unknown [id number]. [id number] 2015 Unknown [id number] 1955 Unknown [id number] [id number] 1955 Unknown [id number] [id number] 1955 Unknown [id number] 2.16.840.1.047368.3.579.2.9 1955 Unknown [id number] 2.16.840.1.228895.3.579.2.1258 1955 Unknown [id number] 2.16.840.1.532857.3.579.2.1259 1955 Unknown [id number] 2.16.840.1.061280.3.579.2.1258 1955 Unknown [id number] 2.16.840.1.025171.3.579.2.9 1955 Unknown [id number] 2.16.840.1.815052.3.579.2.1258 1955 Unknown [id number] 2.16.840.1.411488.3.579.2.1258 1955 Unknown [id number] 2.16.840.1.381920.3.579.2.1258 1955 Unknown [id number] 2.16.840.1.553870.3.579.2.1258 1955 Unknown [id number] 2.16.840.1.191544.3.579.2.1258 1955 Unknown [id number] 2.16.840.1.780256.3.579.2.1258 1955 Unknown [id number] 2.16.840.1.534058.3.579.2.1258 1955 Unknown [id number] 2.16.840.1.211635.3.579.2.1258 1955 Unknown [id number] 2.16.840.1.868029.3.579.2.1258 1955 Unknown [id number] [id number] Social History Date Type Detail Facility Start: 09-04-2022 End: 11-09-2022 Tobacco smoking status [facility] Ex-smoker [facility] End: 08-07-2014 History of tobacco use Current smoker [facility] End: 08-07-2014 History of tobacco use Cigarette Smoker [facility] Start: 09-04-2022 End: 11-09-2022 Tobacco use and exposure Smokeless tobacco non-user [facility] Start: 05-17-2023 End: 02-14-2024 Alcohol intake Lifetime non-drinker (finding) [facility] Start: 03-12-2023 End: 05-17-2023 History of Social function [facility] Start: 03-12-2023 End: 05-17-2023 Tobacco use panel [facility] Start: 11-03-2022 Alcohol Comment caffeine: 1-2 cups/day coffee, soda [facility] Start: 1955 Sex Assigned At Not on file [facility] Start: 06-24-2022 Gender identity Identifies as female gender (finding) [facility] Start: 03-25-2023 End: 05-31-2023 Alcohol intake Current non-drinker of alcohol (finding) [facility] Frequency of Alcohol Consumption Never [facility] Start: 07-13-2021 End: 07-23-2021 Exposure to SARS-CoV-2 (event) Not sure [facility] How often to you hav e a drink containing alcohol? Never [facility] Medical Equipment Procedure Code Equipment Code Equipment Origin al Text Equipment Identifier Dates Inject 1 each un farzaneh the skin in the morning. Use as instructed. 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 Compression fracture of thoracic vertebra, non-traumatic ([facility]) 08/19/2022 DVT (deep venous thrombosis) ([facility]) 2012 left leg Dysthymia ([facility]) 08/18/2022 Mixed hyperlipidemia ([facility]) 08/18/2022 Obesity 08/19/2022 CORY (obstructive sleep apnea) 08/18/2022 Osteoporosis ([facility]) Seasonal allergic rhinitis 08/18/2022 Situational anxiety 08/19/2022 Stress and adjustment reaction ([facility]) 08/19/2022 Social History Tobacco Use Smoking status: [...] Tomas Paredes DO documented in this encounter [facility] 02-03-2024 History of Presen t illness [...] Past Medical History: Diagnosis Date Anxiety attack ([facility]) 2012 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 Compression fracture of thoracic vertebra, non-traumatic ([facility]) 08/19/2022 DVT (deep venous thrombosis) ([facility]) 2012 left leg Dysthymia ([facility]) 08/18/2022 Mixed hyperlipidemia ([facility]) 08/18/2022 Obesity 08/19/2022 CORY (obstructive sleep apnea) 08/18/2022 Osteoporosis ([facility]) Seasonal allergic rhinitis 08/18/2022 Situational anxiety 08/19/2022 Stress and adjustment reaction ([facility]) 08/19/2022 Social History Tobacco Use Smoking status: Former Current packs/day: 0.00 Types: Cigarettes Quit date: 09/10/2012 Years since quittin.4 Smokeless tobacco: Never Vaping Use Vaping status: Never Used Substance Use Topics Alcohol use: Never Comment: caffeine: 1-2 cups/day coffee, soda Drug use: Never Past Surgical History: Procedure Laterality Date APPENDECTOMY 1988 CHOLECYSTECTOMY 2008 HYSTERECTOMY 2006 IR KYPHOPLASTY LUMBAR 06/2019 L3 SEPTOPLASTY 03/27/2014 [facility] TRIGGER FINGER RELEASE 07/23/2021 left MF REVIEW [...] increase physical exercise. documented in this encounter [facility] 01-31-2024 Telephone encount er Note Patient was speaking with her sister yesterday who told her that her doctor found yeast in her body and prescribed something for her. Patient states that when she has gas it has a terrible smell and she thinks it has something to do with yeast in her body. Please advise pt. Thank you. [facility] 01-31-2024 Miscellaneous Notes Formattin g of [...] pt. Thank you. documented in this encounter [facility] 01-26-2024 Telephone encount er Note Pt would like your opinion on Weight loss pill BERBACIL made by [facility] She would like imput from you before she orders it. [phone] [facility] 01-26-2024 Miscellaneous Notes Formattin g of this note might be different from the original. Pt would like your opinion on Weight loss pill BERBACIL made by [facility] She would like imput from you before she orders it. [phone] documented in this encounter [facility] 01-24-2024 History of Presen t illness [...] markedly worsening symptoms. documented in this encounter [facility] 05-31-2023 History of Presen t illness Narrative Patient is here for reclast. This is her second dose. Patient educated on procedure and side effects. Labs WNL. She denies any upcoming dental procedures. IV started. Reclast infused over 15 minutes. Patient tolerated it well without issues. IV flushed and removed. Patient discharged in stable condition. [facility] Tele[facility] encount er Note Patient called saying she has constipation when she does have bowl movement it is hard balls. She was wanting to know what stool softener OTC you would recommend. Thank you [facility] 05-20-2023 Miscellaneous Notes Formattin g of this note might be different from the original. Patient called saying she has constipation when she does have bowl movement it is hard balls. She was wanting to know what stool softener OTC you would recommend. Thank you documented in this encounter [facility] 05-18-2023 Telephone encount er Note Pt called back asking if she will need to stop her Vitamin D and Calcium 3 days prior to reclast? [facility] 05-18-2023 Miscellaneous Notes Formattin g of this note might be different from the original. Pt called back asking if she will need to stop her Vitamin D and Calcium 3 days prior to reclast? documented in this encounter [facility] 05-17-2023 History of Presen t illness Narrative Subjective Patient ID: Danyel Pham is a 67 y.o. female. Osteoporosis assessment: Height and weight taken today in office without shoes on 155 lbs, 61 Risk factors (modifiable): smoking history for 20 years- last smoked 12 years ago (2011). Risk factors (non-modifiable): Age, History of previous insufficiency fracture, no assisted steroids, no thyorid issues, no chemo/radiation, no [...] is within normal limits [facility]. [facility] dexa scan after 08/19/2023 to be done at [facility]. Will send to insurance to get approved also. F/U in 2 years depending on the dexa scan she may need relcast yearly vs every 2 years documented in this encounter [facility] Evaluation note Diagnosis Age-related osteoporosis without current pathological fracture (CMS/HCC)- Primary documented in this encounter [facility] note* Diagnosis Senile osteoporosis- Primary [facility] Diagnosis Age-related osteoporosis without current pathological fracture (CMS/HCC)- Primary documented in this encounter [facility]* Diagnosis Class 1 obesity due to excess calories with serious comorbidity and body mass index (BMI) of 30.0 to 30.9 in adult documented in this encounter [facility]* Diagnosis Senile osteoporosis- Primary [facility] Diagnosis Vertigo- Primary Dizziness and giddiness Nasal congestion Other diseases of nasal cavity and sinuses Otitis media with effusion, left documented in this encounter [facility]* Diagnosis Slow transit constipation- [...] encounter[facility] SystemInstructionsNot on filedocumented in this encounterProMediPremier [facility] SystemInstructionsNot on filedocumented in this encounterProWood [facility] System Summary Purpose Family History No Family History Records FoundNo Family History Records FoundNo Family History Records FoundNo Family History Records FoundNo Family History Records Found Advance Directives No Advanced Directives Records FoundNo Advanced Directives Records FoundNo Advanced Directives Records FoundNo Advanced Directives Records FoundNo Advanced Directives Records Found Hospital Course Note [facility] SURGERY Clinical Discharge Summary PERSON INFORMATION Name DANYEL PHAM Age 63 Years 1955 Sex FEMALE Language Romanian PCP NINA WRIGHT Marital Status Med Service Ambulatory Surgery Acct# Arrival 05/22/2019 10:16:00 Visit Reason SURGERY - KYPHOPLASTY L3 Acuity LOS 006 05:46 Address: [address] [place] [address] Comment: PROVIDER INFORMATION VITALS INFORMATION Vital Sign [...] section and content) DATE CREATED AUTHOR 05/31/2019 [facility] DATE CREATED AUTHOR AUTHOR'S ORGANIZ ATION 05/07/2022 [facility] dicor Specialist DATE CREATED AUTHOR AUTHOR'S ORGANIZ ATION 06/01/2023 [facility] DATE CREATED AUTHOR AUTHOR'S ORGANIZ ATION 10/08/2023 [facility] DATE CREATED AUTHOR AUTHOR'S ORGANIZ ATION 02/15/2024 [facility] dical Specialists [facility] Care Teams (unrecognized sec tion and content) Cross Tie Maker Relationship Specialty Start Date End Date Nina Wright MD [address] [place] [address] PCP - General Family Medicine 10/06/22 Lisbet Suh NP [address] [place] [address] PCP - Medical [employer] 09/10/22 Lisbet Suh NP [address] [place] [address] Nurse Practitioner Family Medicine 10/06/22 Cross Tie Maker Relationship Specialty Start Date End Date Nina Wright MD [address] [place] [address] PCP - General 05/27/12 Cross Tie Maker Relationship Specialty Start Date End Date Nina Wright MD [address] [place] [address] PCP - General Family Medicine 10/06/22 Lisbet Suh NP [address] [place] [address] PCP - Medical [employer] 09/10/22 Lisbet Suh NP [address] [place] [address] Nurse Practitioner Family Medicine 10/06/22 Cross Tie Maker Relationship Specialty Start Date End Date Nina Wright MD [address] [place] [address] PCP - General Family Medicine 10/06/22 Lisbet Suh NP [address] [place] [address] PCP - Medical [employer] 09/10/22 Lisbet uSh NP [address] [place] [address] Nurse Practitioner Family Medicine 10/06/22 Cross Tie Maker Relationship Specialty Start Date End Date Nina Wright MD [address] [place] [address] PCP - General 05/27/12 Cross Tie Maker Relationship Specialty Start Date End Date Nina Wright MD [address] [place] [address] PCP - General 05/27/12 Cross Tie Maker Relationship Specialty Start Date End Date Nina Wright MD [address] [place] [address] PCP - General Family Medicine 10/06/22 Lisbet Suh NP [address] [place] [address] PCP - [employer] 11/11/23 Lisbet Suh NP [address] [place] [address] Nurse Practitioner Family Medicine 10/06/22 Cross Tie Maker Relationship Specialty Start Date End Date Nina Wright MD [address] [place] [address] PCP - General Family Medicine 10/06/22 Lisbet Suh NP [address] [place] [address] PCP - [employer] 11/11/23 Lisbet Suh NP [address] [place] [address] Nurse Practitioner Family Medicine 10/06/22 Cross Tie Maker Relationship Specialty Start Date End Date Nina Wright MD [address] [place] [address] PCP - General Family Medicine 10/06/22 Lisbet Suh NP [address] [place] [address] PCP - [employer] 11/11/23 Lisbet Suh NP [address] [place] [address] Nurse Practitioner Family Medicine 10/06/22 Cross Tie Maker Relationship Specialty Start Date End Date Nina Wright MD [address] [place] [address] PCP - General Family Medicine 10/06/22 Lisbet Suh NP [address] [place] [address] PCP - [employer] 11/11/23 Lisbet Suh NP [address] [place] [address] Nurse Practitioner Family Medicine 10/06/22 Cross Tie Maker Relationship Specialty Start Date End Date Nina Wright MD [address] [place] [address] PCP - General Family Medicine 10/06/22 Lisbet Suh NP [address] [place] [address] PCP - [employer] 11/11/23 Lisbet Suh NP [address] [place] [address] Nurse Practitioner Family Medicine 10/06/22 Cross Tie Maker Relationship Specialty Start Date End Date Nina Wright MD [address] [place] [address] PCP - General Family Medicine 10/06/22 Lisbet Suh NP [address] [place] [address] PCP - [employer] 11/11/23 Lisbet Suh NP [address] [place] [address] Nurse Practitioner Family Medicine 10/06/22 Cross Tie Maker Relationship Specialty Start Date End Date Nina Wright MD [address] [place] [address] PCP - General Family Medicine 10/06/22 Lisbet Suh NP [address] [place] [address] PCP - [employer] 11/11/23 Lisbet Suh NP [address] [place] [address] Nurse Practitioner Family Medicine 10/06/22 Cross Tie Maker Relationship Specialty Start Date End Date Nina Wright MD [address] [place], [place] [id number] PCP - General Family Medicine 10/06/22 Lisbet Suh NP [address] [place] [address] PCP - [employer] 11/11/23 Lisbet Suh NP [address] [place], [place] [id number] Nurse Practitioner Family Medicine 10/06/22 Reason for Visit (unrecogniz ed section and content) Reason Onset Date Comments Med Refill 05/20/2023 Reason Comments Outpatient Infusion Reclast Specialty Diagnoses / Procedures Referred By Contac t Referred To Contact Diagnoses Senile osteoporosis Procedures MO ZOLEDRONIC ACID 1MG MO INJECTION,THERAP/PROPH/SILAS GNOST, IV PUSH, INITIAL DRUG Apling, Nishi Watts, GENERAL MAINTENANCE HELPER-MARINE CONSULTANT [address] [facility], [facility] [address] [place] [address] Pfo Med Onc [address] [place] [address] Referral ID Status Reason Start Date Expiration Date Visits Re quested Visits Authorized [id number] Closed 05/19/2021 05/19/2022 1 1 Reason Comments [...] osteoporosis without current pathological fracture (CMS/HCC) Procedures MO ZOLEDRONIC ACID 1MG Nishi Bassett NP [address] [place] [address] Phone: tel: fax: [facility] fax: Referral ID Status Reason Start Date Expiration Date Visits Re quested Visits Authorized [id number] Closed 2023 03/26/2024 1 1 FOR RECORDS [...] BE BASED ON THE PRIMARY CLINICAL RECORDS. [facility] [employer] provides no warranty or guarantee of the accuracy or completeness of information in this document.
[2024-03-14] MEDS: 0.9 % SODIUM CHLORIDE 500 ML 50 ML IV (08:40)
--- NOTE | 2024-03-14 09:37 | W.PM.PROCNOT ---
Date of procedure: 03/14/24 Pre-op diagnosis: screening colonoscopy Post-op diagnosis: same as pre-op Procedure: Previous colonoscopy: 2020 procedure: screening colonoscopy The patient was given IV conscious sedation.? The patient's SPO2 remained above 90% throughout the procedure. The colonoscope was inserted per rectum and advanced under direct vision to the cecum without difficulty.? The prep was good.? Findings: Terminal ileum os: normal Cecum/Ascending colon: normal Transverse colon: normal Descending/Sigmoid colon: normal Rectum/Anus: examined in normal and retroflexed positions and was normal Withdrawal Time was (minutes): 10 The colon was decompressed and the scope was removed.? The patient tolerated the procedure well. Recommendations/Plan: 1.? Lifestyle and dietary modifications as discussed 2.? F/U in 5 years given prior scope needing a 3 year follow up for multiple polypectomies 3.? Discussed with the family Anesthesia: MAC Surgeon: Yousuf Paredes Estimated blood loss (mL): 0 Pathology: none sent Condition: stable Disposition: PACU
[2024-03-14 10:05] VITALS: BP 118/71; PULSE 86; O2SAT 96
[2024-03-14 10:20] VITALS: BP 113/68; PULSE 81; O2SAT 97
[2024-03-14 10:35] VITALS: BP 109/64; PULSE 64; O2SAT 96
== END 2024-03-14 10:35 | disposition home or self-care (01) ==
PROVIDERS: Family Provider Family Medicine; PCP Family Medicine; Visit Provider Surgery
PROC: (CPT G0121; principal; 2024-03-14 09:20)
DX: Z12.11 Encounter for screening for malignant neoplasm of colon (principal); Z86.0100 Personal history of colon polyps, unspecified; Z79.82 Long term (current) use of aspirin; Z90.49 Acquired absence of other specified parts of digestive tract; Z90.710 Acquired absence of both cervix and uterus; Z87.891 Personal history of nicotine dependence
CPT/HCPCS: G0121; J2704